=== PATIENT | female | born 1965 | race Caucasian/White ===

== ENCOUNTER 2016-11-17 19:42 | Outpatient (CLI) | payer MEDICAID | END 2016-11-17 19:43 | disposition critical access hospital (66) | LOC: EMS 19:42 | PROVIDERS: ATTEND Surgery | DX: S09.93XA Unspecified injury of face, initial encounter (principal); W18.30XA Fall on same level, unspecified, initial encounter; Y92.89 Other specified places as the place of occurrence of the external cause | CPT/HCPCS: A0425; A0429 ==

== ENCOUNTER 2016-11-17 20:02 | Emergency (ER) | payer MEDICAID ==
[2016-11-17] MEDS ORDERED: MAGNESIUM SULFATE 2 GRAM 50 ML IV STA (20:10)
[2016-11-17] MEDS ORDERED: THIAMINE INJ 100 MG, FOLIC ACID INJ 1 MG in SODIUM CHLORIDE 0.9% 100ML 100 ML IV STA (20:10)
[2016-11-17] MEDS ORDERED: MULTIVITAMIN 10 ML in SODIUM CHLORIDE 0.9% 1,000 ML IV STA (20:10)
[2016-11-17] MEDS ORDERED: SODIUM CHLORIDE FLUSH 0.9% 10 ML SYRINGE IVP ONE (20:25)
[2016-11-17 20:34] LABS: BASOPHILS # (AUTO) 0.1 10^3/uL (0.0-0.1); BASOPHILS % (AUTO) 0.8 %; EOSINOPHILS # (AUTO) 0.2 10^3/uL (0.0-0.7); EOSINOPHILS % (AUTO) 1.9 %; HCT - HEMATOCRIT 37.6 % (37.0-47.0); HGB - HEMOGLOBIN 12.9 g/dL (12.0-16.0); LYMPHOCYTES % (AUTO) 34.6 %; MEAN CORPUSCULAR HEMOGLOBIN 31.2 pg (27.0-31.0); MEAN CORPUSCULAR HGB CONC 34.4 g/dL (32.0-36.0); MEAN CORPUSCULAR VOLUME 90.9 fL (81.0-99.0); MEAN PLATELET VOLUME 6.5 fL (7.9-10.8); MONOCYTES # (AUTO) 0.8 10^3/uL (0.0-1.0); MONOCYTES % (AUTO) 8.6 %; NEUTROPHILS # (AUTO) 4.7 10^3/uL (1.5-6.6); NEUTROPHILS % (AUTO) 54.1 %; RED BLOOD COUNT 4.14 10^6/uL (4.20-5.40); RED CELL DISTRIBUTION WIDTH 14.3 % (12.0-15.0); UNCORRECTED WHITE BLOOD COUNT 8.8 x10^3/uL; WHITE BLOOD COUNT 8.8 x10^3/uL (4.8-10.8)
--- NOTE | 2016-11-17 20:37 | ED Physician Documentation ---
History of Present Illness - Stated complaint Stated Complaint: ETOH/GLF - Chief complaint Chief Complaint: Neuro - Additonal information Additional information: Patient is a 51-year-old female with a history of alcohol dependence, seizure disorder on Dilantin, and chronic musculoskeletal problems. The patient had been drinking substantially today when she fell earlier in the day. He arrived to the scene and found the patient on the ground. Patient is quite inebriated and has some evidence of injury to her right cheek area. Here the patient is alert and oriented although appears and smells very inebriated. She complains of neck and lower back pain both of which are ongoing and not acute. She presented in cervical spine precautions which we will continue until she can be clinically assessed. She also complains of low back pain which again is chronic. The low back pain is located in the lumbar area. She denies that this was injured or worse today. She has a small amount of swelling around the eye I on the right side that looks acute or subacute. Review of systems: For pertinent positive and negatives in the review of systems please see the history of present illness, otherwise all other systems have been reviewed and are negative. Dragon disclaimer: Parts of this medical record were created using voice recognition technology. Because of the inherent limitations of this system, occasional same sounding word substitutions do occur and persist despite proofreading. Please read the document for context. 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) Neuro: Craniotomy HEENT: Cataracts - Present Medications Home Medications: Ambulatory Orders Medication Instructions Recorded Confirmed Atenolol 100 mg PO DAILY 11/09/14 11/23/14 Phenytoin Sodium Extended 500 mg PO DAILY 11/09/14 11/23/14 [Dilantin] Aspirin/Calcium Carbonate/Mag 325 mg PO DAILY 11/22/14 11/22/14 [Aspirin Buffered 325 mg Tab] - Allergies Allergies/Adverse Reactions: Allergies Allergy/AdvReac Type Severity Reaction Status Date / Time acetaminophen [From Tylenol] Allergy Respiratory Verified 08/18/15 19:40 ibuprofen AdvReac Nausea Verified 08/18/15 19:40 morphine AdvReac Nausea Verified 08/18/15 19:40 - Social History Does the pt smoke?: Yes Smoking Status: Current every day smoker Does the pt drink ETOH?: Yes Does the pt have substance abuse?: No - Immunizations Immunizations are current?: No Immunizations: TDAP >10years/unknown PD ED PE NORMAL - Vitals Vital signs reviewed: Yes - General General: Alert and oriented X 3, No acute distress, Other (Mild erythema or ultrahigh without any evidence of severe contusion. Eyes are clinically normal without proptosis, and ophthalmicus. There is no disconjugate gaze. Head is palpated and nontender. [place] moist teeth in poor condition neck bilateral posterior muscular tenderness not truly in the midline). No: Well developed/ nourished - HEENT HEENT: Other - Neck Neck: Supple, no meningeal sign. 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 doctor's office 2-12 intact, No motor deficit, No sensory deficit Results - Vitals Vitals: Vital Signs - 24 hr 11/17/16 20:05 Temperature 36.3 C L Heart Rate 80 Respiratory 20 Rate Blood Pressure 150/85 H O2 Saturation 100 Oxygen O2 Source Room air - Labs Labs: Laboratory Tests 11/17/16 11/17/16 20:28 20:28 WBC 8.8 RBC 4.14 L Hgb 12.9 Hct 37.6 MCV 90.9 MCH 31.2 H MCHC 34.4 RDW 14.3 Plt Count 273 MPV 6.5 L Neut # 4.7 Lymph # 3.0 Harvey # 0.8 Eos # 0.2 Baso # 0.1 Absolute Nucleated RBC 0.00 Nucleated RBCs 0.0 Sodium 129 L Potassium 3.7 Chloride 92 L Carbon Dioxide 26 Anion Gap 11.0 BUN 9 Creatinine 0.5 Estimated GFR (MDRD) 131 Glucose 94 Calcium 9.0 Total Bilirubin 0.5 AST 27 ALT 16 Alkaline Phosphatase 70 Total Protein 7.6 Albumin 4.5 Globulin 3.1 Albumin/Globulin Ratio 1.5 Lipase 23 Phenytoin 11.5 Ethyl Alcohol 256.6 PD MEDICAL DECISION MAKING - ED course Complexity details: reviewed old records, reviewed results, re-evaluated patient , d/w patient ED course: Patient is a 51-year-old female with a history of alcoholism and a seizure disorder. She presents after falling earlier today. She says she struck her head hard and was dizzy afterward. Her friend called the ambulance who brought her in. Initially the patient was mildly inebriated smelled heavily of alcohol that I presumably it was mostly aldehyde's from previous drinking earlier today. From an injury standpoint she was complaining of headache although I did not see any significant injury other than a little johnny-orbital contusion on the right. She is also complaining of neck pain and has a history of the same however given the fall and her alcoholism I did a CT scan of the head and neck. Both show no evidence of any acute fracture. She does have low back pain but she says this is her regular low back pain and is no worse than it normally is. Her alcohol level is elevated and she was given intravenous fluids , vitamins, and magnesium at this point in time he is clinically sober. She has been cleared from an injury standpoint and she will be released. Disposition: To home clinical impression: 1. Acute alcohol intoxication 2. Status post fall with right periorbital contusion, closed head injury, and cervical strain Departure - Departure Disposition: 01 Home, Self Care Clinical Impression: Alcohol abuse, Head injury Condition: Good Instructions: Alcoholism, ED Head Injury Closed
[2016-11-17] MEDS ORDERED: THIAMINE 100 MG/1 ML 2 ML MDV ONE (20:41)
[2016-11-17] MEDS ORDERED: MAGNESIUM SULFATE 2 GRAM 50 ML IV ONE (20:44)
[2016-11-17 20:48] LABS: ALBUMIN/GLOBULIN RATIO 1.5 (1.0-2.2); BILIRUBIN,TOTAL 0.5 mg/dL (0.2-1.0); CREATININE 0.5 mg/dL (0.4-1.0); POTASSIUM 3.7 mmol/L (3.5-5.0); TOTAL PROTEIN 7.6 g/dL (6.7-8.2)
--- NOTE | 2016-11-17 22:28 | CT Preliminary Report ---
Exam: CT Head W/O IMPRESSION: No acute intracranial process. [facility] SITE ID: [id number]
--- NOTE | 2016-11-17 22:31 | CT Report ---
EXAM: CT HEAD EXAM DATE: 11/17/2016 09:58 PM. CLINICAL HISTORY: Fall. COMPARISON: 12/18/2015. TECHNIQUE: Multiaxial CT images were obtained from the foramen magnum to the vertex. IV contrast: Non e. Reformats: Coronal. In accordance with CT protocol optimization, one or more of the following dose reduction techniques w ere utilized for this exam: automated exposure control, adjustment of mA and/or KV based on patient s ize, or use of iterative reconstructive technique. FINDINGS: Parenchyma: No intraparenchymal hemorrhage. No evidence of mass, midline shift, or CT findings of inf arction. Stinson-white differentiation is distinct. Extraaxial Spaces: Normal for age. No subdural or epidural collections identified. Ventricles: Normal in size and position. Sinuses: Imaged paranasal sinuses, orbits, and mastoids show no significant abnormality. Bones: Patient status post prior left frontal parietal craniotomy. Other: None. IMPRESSION: No acute intracranial process. [facility] Referring Provider Line: [phone] SITE ID: [id number]
--- NOTE | 2016-11-17 22:36 | CT Preliminary Report ---
Exam: CT Cervical Spine W/O IMPRESSION: No evidence of cervical spine fracture. [facility] SITE ID: [id number]
--- NOTE | 2016-11-17 22:39 | CT Report ---
EXAM: CT CERVICAL SPINE WITHOUT CONTRAST DATE: 11/17/2016 09:58 PM HISTORY: Fall, neck pain COMPARISONS: CT cervical spine 08/18/2015. TECHNIQUE: Thin-section axial images were acquired of the cervical spine without contrast. Post-proce ssing: Coronal and sagittal reformats. Other: None. In accordance with CT protocol optimization, one or more of the following dose reduction techniques w ere utilized for this exam: automated exposure control, adjustment of mA and/or KV based on patient s ize, or use of iterative reconstructive technique. FINDINGS: Alignment: Normal. No scoliosis or spondylolisthesis. Bones: No fracture or bone lesion. Interspace Levels/Facets: There is no CT evidence of central canal narrowing. There are prominent anterior osteophytes at C5-C6 and C6-C7. There is moderate facet hypertrophy on the right at C2-C3 and C4-C5 and on the left at C3 -C4. There is moderate right C2-C3 neural foraminal narrowing. There is severe left C3-C4 neural for aminal narrowing. There is severe right C4-C5 neural foraminal narrowing. There is mild left C5-C6 ne ural foraminal narrowing. Musculature: Normal. No fatty atrophy. Other: The paravertebral and prevertebral soft tissues are normal. The lung apices are clear. There i s note of periodontal disease related to several visualized teeth. IMPRESSION: No evidence of cervical spine fracture. [facility] Referring Provider Line: [phone] SITE ID: [id number]
[2016-11-17 23:22] VITALS: BP 138/79
== END 2016-11-17 23:23 | disposition home or self-care (01) ==
LOC: EDUNIT# → ED 20:02
DX: F10.129 Alcohol abuse with intoxication, unspecified (principal); S09.90XA Unspecified injury of head, initial encounter; W18.30XA Fall on same level, unspecified, initial encounter; Y90.8 Blood alcohol level of 240 mg/100 ml or more; I10 Essential (primary) hypertension; F17.200 Nicotine dependence, unspecified, uncomplicated; Z79.82 Long term (current) use of aspirin
CPT/HCPCS: 36415; 70450; 72125; 80053; 80185; 80320; 83690; 85025; 96374; 96375; 99284; J3411

== ENCOUNTER 2016-11-21 12:19 | Outpatient (CLI) | payer MEDICAID | END 2016-11-21 12:20 | disposition EMS.NT | LOC: EMS 12:19 | PROVIDERS: ATTEND Surgery | DX: R22.0 Localized swelling, mass and lump, head (principal); S80.12XA Contusion of left lower leg, initial encounter; S80.11XA Contusion of right lower leg, initial encounter; Y04.8XXA Assault by other bodily force, initial encounter ==

== ENCOUNTER 2016-11-23 10:28 | Outpatient (CLI) | payer MEDICAID ==
--- NOTE | 2016-11-23 12:29 | XRAY Report ---
BILATERAL ORBITS: 11/23/2016 CLINICAL INDICATION: Eye injury. COMPARISON: Head CT of 11/17/2016. FINDINGS: AP, lateral, Burgess, bilateral oblique views of the orbits were obtained. The orbital wall s appear intact. Changes of previous left craniotomy are stable. There is no evidence of acute fractu re. No air fluid levels are seen in the paranasal sinuses. IMPRESSION: NO EVIDENCE OF ORBITAL FRACTURE. OLD LEFT CRANIOTOMY CHANGES. JOB #: [id number] EXT JOB #:[id number]
== END 2016-11-23 10:29 | disposition home or self-care (01) ==
LOC: DI.S 10:28
PROVIDERS: ATTEND Nurse Practitioner Family
DX: S05.90XA Unspecified injury of unspecified eye and orbit, initial encounter (principal)
CPT/HCPCS: 70200

== ENCOUNTER 2017-04-27 21:41 | Outpatient (CLI) | payer MEDICAID | END 2017-04-27 21:42 | disposition EMS.NT | LOC: EMS 21:41 | PROVIDERS: ATTEND Surgery | DX: S09.93XA Unspecified injury of face, initial encounter (principal); W19.XXXA Unspecified fall, initial encounter; W22.8XXA Striking against or struck by other objects, initial encounter; Y92.039 Unspecified place in apartment as the place of occurrence of the external cause ==

== ENCOUNTER 2017-12-08 19:07 | Outpatient (CLI) | payer MEDICAID | END 2017-12-08 19:08 | disposition critical access hospital (66) | LOC: EMS 19:07 | PROVIDERS: ATTEND Surgery | DX: M25.571 Pain in right ankle and joints of right foot (principal) | CPT/HCPCS: A0425; A0429; A0999 ==

== ENCOUNTER 2017-12-08 19:27 | Emergency (ER) | payer MEDICAID ==
--- NOTE | 2017-12-08 20:26 | XRAY Report ---
Reason: fall, R ankle pain Procedure Date: 12/08/2017 Accession Number: [id number] / [id number] Procedure: XR - Ankle 3 View RT CPT Code: FULL RESULT: EXAM: RIGHT ANKLE RADIOGRAPHY, 3 VIEWS EXAM DATE: 12/08/2017 08:13 PM. CLINICAL HISTORY: Fall, right ankle pain in a 52-year-old female with history of prior trimalleolar fracture. COMPARISON: X-ray ankle complete min 3 view 12/06/2010. TECHNIQUE: Frontal, lateral and oblique views. FINDINGS: Bones: Intact ORIF for trimalleolar fracture with satisfactory healing of fractures. No loosening or hardware failure. No new osseous abnormality. No acute fractures or bone lesions. Joints: Normal. No effusion. No subluxations. The ankle mortise is normally aligned. Soft Tissues: Mild diffuse soft tissue swelling about the ankle,most prominent anteriorly. No soft tissue gas or foreign body. IMPRESSION: Generalized [id number] soft tissue swelling, more prominent anteriorly, without underlying acute bone or joint abnormality. Satisfactory appearance of prior ORIF for trimalleolar ankle fracture. No loosening or hardware failure. [facility]
--- NOTE | 2017-12-08 20:34 | XRAY Report ---
Reason: fall, R foot pain Procedure Date: 12/08/2017 Accession Number: [id number] / [id number] Procedure: XR - Foot 3 View RT CPT Code: FULL RESULT: EXAM: RIGHT FOOT RADIOGRAPHY, 3 VIEWS. EXAM DATE: 12/08/2017 08:13 PM. CLINICAL HISTORY: 52-year-old female post fall with right foot pain. History of prior trimalleolar ankle fracture. COMPARISON: Right ankle study today and earlier examination of 12/06/2010. TECHNIQUE: Frontal, lateral and oblique views. FINDINGS: Bones: Intact ORIF trimalleolar ankle fracture, discussed in detail on separate right ankle report. No acute fractures or bone lesions. Joints: Normal. No subluxations. Soft Tissues: Mild soft tissue swelling over the anterior ankle. No soft tissue gas or foreign body. IMPRESSION: Anterior soft tissue swelling in the region of the ankle. Intact ORIF trimalleolar ankle fracture. No acute bone or joint abnormality noted. [facility]
--- NOTE | 2017-12-08 20:47 | ED Physician Documentation ---
History of Present Illness - Stated complaint Stated Complaint: GLF - Chief complaint Chief Complaint: Ext Problem - History obtained from History obtained from: Patient, Friend, EMS - History of Present Illness Timing: Today Pain level max: 5 Pain level now: 5 Improved by: rest Worsened by: walking - Additonal information Additional information: Patient had been drinking alcohol tonight when she stood up and inverted her right ankle. She is now having pain in the right ankle. History of trimalleolar fracture in the past with hardware in place. No head, neck or back pain. 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) Neuro: Craniotomy HEENT: Cataracts - Present Medications Home Medications: Ambulatory Orders Medication Instructions Recorded Confirmed Phenytoin Sodium Extended 500 mg PO DAILY 11/09/14 11/23/14 [Dilantin] Aspirin/Calcium Carbonate/Mag 325 mg PO DAILY 11/22/14 11/22/14 [Aspirin Buffered 325 mg Tab] Bisoprolol Fumarate 12/08/17 Lansoprazole 15 mg PO 12/08/17 Loratadine 10 mg PO 12/08/17 Nifedipine [Adalat cc] 60 mg PO 12/08/17 - Allergies Allergies/Adverse Reactions: Allergies Allergy/AdvReac Type Severity Reaction Status Date / Time acetaminophen [From Tylenol] Allergy Respiratory Verified 12/08/17 19:35 ibuprofen AdvReac Nausea Verified 12/08/17 19:35 morphine AdvReac Nausea Verified 12/08/17 19:35 - Social History Does the pt smoke?: Yes Smoking Status: Current every day smoker Does the pt drink ETOH?: Yes Does the pt have substance abuse?: No - Immunizations Immunizations are current?: No Immunizations: TDAP >10years/unknown - POLST Patient has POLST: No PD ED PE NORMAL - Vitals Vital signs reviewed: Yes - General General: Alert and oriented X 3, Well developed/nourished - HEENT HEENT: Moist mucous membranes - Neck Neck: Supple, no meningeal sign, No bony TTP - Cardiac Cardiac: RRR - Respiratory Respiratory: No respiratory distress, Clear bilaterally - Abdomen Abdomen: Soft, Non tender, Non distended - Back Back: No spinal TTP - Derm Derm: Warm and dry - Extremities Extremities: Other (TTP over the R lateral malleolus. NVI. also TTP over the dorsum of the foot. ) - Neuro Neuro: Alert and oriented X 3 Results - Vitals Vitals: Vital Signs - 24 hr 12/08/17 12/08/17 19:29 21:01 Temperature 36.6 C Heart Rate 100 96 Respiratory 14 17 Rate Blood Pressure 146/94 H 128/90 H O2 Saturation 97 100 Oxygen O2 Source Room air - Rads (name of study) R ankle xray Radiology: Prelim report reviewed, EMP read contemporaneously, See rad report ( Anterior soft tissue swelling in the region of the ankle. Intact ORIF trimalleolar ankle fracture. No acute bone or joint abnormality noted. ) R foot xray Radiology: Prelim report reviewed, EMP read contemporaneously, See rad report ( Anterior soft tissue swelling in the region of the ankle. Intact ORIF trimalleolar ankle fracture. No acute bone or joint abnormality noted. ) PD MEDICAL DECISION MAKING - ED course Complexity details: reviewed results, re-evaluated patient, considered differential, d/w patient ED course: Patient with a right ankle sprain. Placed in a gel splint for comfort. She is unable to utilize crutches. Has pain medication at home. I will follow-up with her doctor for further care. No other acute traumatic injuries. Counseled regarding missed fractures and may need repeat xrays if not improving. Patient counseled regarding signs and symptoms for which I believe and urgent re-evaluation would be necessary. Patient with good understanding of and agreement to plan and is comfortable going home at this time This document was made in part using voice recognition software. While efforts are made to proofread this document, sound alike and grammatical errors may occur. - Sepsis Event Vital Signs: Vital Signs - 24 hr 18 12/08/17 19:29 21:01 Temperature 36.6 C Heart Rate 100 96 Respiratory 14 17 Rate Blood Pressure 146/94 H 128/90 H O2 Saturation 97 100 Oxygen O2 Source Room air Departure - Departure Disposition: 01 Home, Self Care Clinical Impression: Right ankle sprain Qualifiers: Encounter type: initial encounter Involved ligament of ankle: unspecified ligament Qualified Code(s): S93.401A - Sprain of unspecified ligament of right ankle, initial encounter Condition: Good Instructions: ED Sprain Ankle Follow-Up: Alexandra Centeno ARNP [Primary Care Provider] - Within 1 week Comments: return if you worsen. Your xrays do not show any acute abnormalities at this time. Discharge Date/Time: 12/08/17 21:05
[2017-12-08 21:01] VITALS: BP 128/90
== END 2017-12-08 21:05 | disposition home or self-care (01) ==
LOC: EDUNIT# → SUPCPDRO 19:27 → ED 19:27
DX: S93.401A Sprain of unspecified ligament of right ankle, initial encounter (principal); X50.1XXA Overexertion from prolonged static or awkward postures, initial encounter; Z87.81 Personal history of (healed) traumatic fracture; I10 Essential (primary) hypertension; E78.00 Pure hypercholesterolemia, unspecified; F17.200 Nicotine dependence, unspecified, uncomplicated
CPT/HCPCS: 99282; 99283

== ENCOUNTER 2018-09-09 08:31 | Emergency (ER) | payer MEDICAID ==
[2018-09-09] MEDS ORDERED: BUFFERED LIDOCAINE 10 ML SYRINGE SUBQ STA (10:23)
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
[2018-09-09] MEDS ORDERED: TETANUS/DIPHTHERIA/PERTUSSIS 0.5 ML SYRINGE IM ONE (10:56)
[2018-09-09 11:09] VITALS: BP 128/88
== END 2018-09-09 11:09 | disposition home or self-care (01) ==
LOC: ED 08:31
DX: S01.511A Laceration without foreign body of lip, initial encounter (principal); W20.8XXA Other cause of strike by thrown, projected or falling object, initial encounter; Y93.01 Activity, walking, marching and hiking; Y92.410 Unspecified street and highway as the place of occurrence of the external cause; Z23 Encounter for immunization; I10 Essential (primary) hypertension; F17.200 Nicotine dependence, unspecified, uncomplicated; Z79.82 Long term (current) use of aspirin
CPT/HCPCS: 12011; 90471; 99282; 99283

== ENCOUNTER 2019-04-26 10:00 | Outpatient (CLI) | payer MEDICAID ==
--- NOTE | 2019-04-26 15:57 | DEXA Report ---
Reason: POSTMENOPAUSAL Procedure Date: 04/26/2019 Accession Number: [id number] / [id number] Procedure: DEX - Dexa Spine and/or Hip CPT Code: Final Report FULL RESULT: EXAM: Dexa Spine and/or Hip DATE: 04/26/2019 10:28 AM CLINICAL HISTORY: POSTMENOPAUSAL. TECHNIQUE: Dual energy x-ray absorptiometry (DXA) was performed on a turntable.fm System. Regions measured are the AP Spine, femoral neck, and if needed forearm. COMPARISON: None. In accordance with the International Society for Clinical Densitometry (ISCD) guidelines, data from previous exams may be reanalyzed using current recommendations and techniques. This is done to allow a more accurate basis for comparison with the current study. FINDINGS: The data for the lumbar spine is as follows: BMD (g/cm/cm) T-SCORE Z-SCORE REGION L1 1.170 0.3 0.8 L2 1.282 0.7 1.2 L3 1.444 2.0 2.5 L4 1.421 1.8 2.3 TOTAL 1.340 1.3 1.8 NOTE: All evaluable vertebrae are used for classification The data for the hip is as follows: BMD (g/cm/cm) T-SCORE Z-SCORE REGION Neck 0.891 -1.1 -0.2 TOTAL 0.847 -1.3 -0.8 NOTE: The femoral neck or total proximal femur, whichever is lowest, is used for classification. IMPRESSION: THE WHO CLASSIFICATION BASED ON THE INTERNATIONAL REFERENCE STANDARD IS OSTEOPENIA. THE FRACTURE RISK IS INCREASED. RECOMMENDATION: Patients with diagnosis of osteoporosis or osteopenia should have regular bone mineral density assessment. For those eligible for Medicare, routine testing is allowed once every 2 years. Testing frequency can be increased for patients who have rapidly progressing disease or for those who are receiving medical therapy to restore bone mass. COMMENT: World Health Organization (WHO) definitions for osteoporosis and osteopenia: NORMAL BMD: T-score at -1.0 or higher, fracture risk is low OSTEOPENIA BMD: T-score between -1.0 and -2.5, fracture risk is increased. OSTEOPOROSIS BMD: T-score at -2.5 or lower, fracture risk is high. National Osteoporosis Foundation recommends: 1. Obtain adequate dietary calcium (at least 1200 mg per day) and vitamin D (400-800 international units per day). 2. Participate, as appropriate, in regular weightbearing and muscle-strengthening exercise. 3. Avoid tobacco use and reduce alcohol and caffeine intake. 4. For more detailed information see the website at www.NOF.org.
== END 2019-04-26 10:01 | disposition home or self-care (01) ==
LOC: DI 10:00
PROVIDERS: ATTEND Registered Nurse
DX: M85.89 Other specified disorders of bone density and structure, multiple sites (principal); Z78.0 Asymptomatic menopausal state
CPT/HCPCS: 77080

== ENCOUNTER 2019-04-26 10:03 | Outpatient (CLI) | payer MEDICAID ==
--- NOTE | 2019-04-26 12:30 | Mammography Report ---
Reason: ROUTINE MAMMO Procedure Date: 04/26/2019 Accession Number: [id number] / [id number] Procedure: SUSANNA - Screening Mammo w/Paul CPT Code: Final Report FULL RESULT: EXAM: Screening Mammo w/Paul DATE: 04/26/2019 11:07 AM CLINICAL HISTORY: The patient is an asymptomatic 53-year-old female for screening mammogram. Nulliparous. Family history (sister) with breast cancer. TECHNIQUE: (B) - Bilateral CC and MLO views were obtained. COMPARISON: None available PARENCHYMAL PATTERN: (A) - The breasts demonstrate scattered fibroglandular densities bilaterally. FINDINGS: RIGHT BREAST: There may be a focal asymmetry in the subareolar position; reference 3-D slice 30 (MLO view). Recommend targeted diagnostic evaluation. The remainder the parenchymal pattern is unremarkable. LEFT BREAST: There may be asymmetry/distortion in the upper outer middle position; reference 3-D slices 32 (MLO view) and 26 (CC view). Recommend targeted diagnostic evaluation. The remainder the parenchymal pattern is unremarkable. IMPRESSION: Incomplete examination. BI-RADS category 0. RECOMMENDATION: (ADDMAM) - Recommend additional mammographic views. Recommend ultrasound if warranted. BI-RADS CATEGORY: (0) - Incomplete Examination - need additional evaluation. STANDARD QUALIFYING STATEMENTS: A negative or benign imaging report should not preclude biopsy if clinically suspicious findings are present. Dense breasts may obscure an underlying neoplasm. This examination was reviewed with the aid of 3D breast imaging (tomosynthesis). BI-RADS 1 -- negative findings (within normal)
== END 2019-04-26 10:04 | disposition home or self-care (01) ==
LOC: DI 10:03
PROVIDERS: ATTEND Registered Nurse
DX: Z12.31 Encounter for screening mammogram for malignant neoplasm of breast (principal); Z80.3 Family history of malignant neoplasm of breast
CPT/HCPCS: 77063; 77067

== ENCOUNTER 2020-04-02 08:28 | Outpatient (CLI) | payer MEDICAID ==
--- NOTE | 2020-04-03 09:19 | Ultrasound Report ---
LIMITED ULTRASOUND OF RIGHT BREAST: 04/02/2020 CLINICAL: Patient returns today to evaluate a focal asymmetry in the right breast. Comparison is made to exams dated: 04/02/2020 mammogram - [facility] and 04/26/2019 mammogram - [facility]. Ultrasound of the right breast 6 o'clock, and retroareolar regions was performed. There is benign duct ectasia in the right breast central to the nipple in the retroareolar region. T his correlates with mammography findings. IMPRESSION: BENIGN There is no sonographic evidence of malignancy. The duct ectasia in the right breast is benign. A 1 year screening mammogram is recommended. This exam was interpreted at Station ID: [id number]. Electronically Signed By: Burton guerrero/tyler:04/02/2020 11:11:05 Ultrasound BI-RADS: 2 Benign BI-RADS CATEGORY: (2) - 2 RECOMMENDATION: (ANNUAL) - Recommend routine annual screening mammography. [id number] 1 year screening LATERALITY: (B)
--- NOTE | 2020-04-03 09:19 | Mammography Report ---
BILATERAL DIGITAL DIAGNOSTIC MAMMOGRAM 3D/2D: 04/02/2020 CLINICAL: Patient returns today to evaluate asymmetries in bilateral breasts. Comparison is made to exams dated: 04/26/2019 mammogram - [facility]. There are sc attered fibroglandular elements in both breasts. The previously seen focal asymmetry in the left breast upper outer quadrant disperses on spot ramírez minh views, compatible with normal fibroglandular breast tissue. There is a 4 mm focal asymmetry with an obscured margin in the right breast central to the nipple in the retroareolar region. This is seen in additional views. No other significant masses, calcifications, or other findings are seen in either breast. IMPRESSION: INCOMPLETE: NEEDS ADDITIONAL IMAGING EVALUATION The 4 mm focal asymmetry in the right breast is indeterminate. An ultrasound is recommended. This exam was interpreted at Station ID: [id number]. NOTE: For mammograms, a report in lay terms will be sent to the patient. Approximately 15% of breast malignancies will not be visualized mammographically. In the management of a palpable breast mass, a negative mammogram must not discourage biopsy of a clinically suspicious lesion. SUMMARY: Targeted ultrasound is recommended for further evaluation and will be scheduled immediately following this exam. Electronically Signed By: Burton guerrero/tyler:04/02/2020 11:09:44 ACR BI-RADS Category 0: Incomplete 3340F PARENCHYMAL PATTERN: (A) - The breast(s) demonstrate(s) scattered fibroglandular densities. BI-RADS CATEGORY: (0) - 0 Ultrasound [id number] Immediate follow-up LATERALITY: (R)
== END 2020-04-02 08:29 | disposition home or self-care (01) ==
LOC: DI 08:28
PROVIDERS: ATTEND Registered Nurse
DX: R92.8 Other abnormal and inconclusive findings on diagnostic imaging of breast (principal)

== ENCOUNTER 2020-06-03 10:54 | Outpatient (CLI) | payer MEDICAID ==
[2020-06-03 11:17] LABS: BASOPHILS # (AUTO) 0.1 10^3/uL (0.0-0.1); BASOPHILS % (AUTO) 1.7 %; EOSINOPHILS # (AUTO) 0.1 10^3/uL (0.0-0.7); EOSINOPHILS % (AUTO) 1.5 %; HCT - HEMATOCRIT 42.7 % (37.0-47.0); HGB - HEMOGLOBIN 13.8 g/dL (12.0-16.0); LYMPHOCYTES # (AUTO) 1.7 10^3/uL (1.5-3.5); LYMPHOCYTES % (AUTO) 28.5 %; MEAN CORPUSCULAR HEMOGLOBIN 29.7 pg (27.0-31.0); MEAN CORPUSCULAR HGB CONC 32.3 g/dL (32.0-36.0); MEAN CORPUSCULAR VOLUME 91.8 fL (81.0-99.0); MEAN PLATELET VOLUME 8.6 fL (7.9-10.8); MONOCYTES # (AUTO) 0.7 10^3/uL (0.0-1.0); MONOCYTES % (AUTO) 11.5 %; NEUTROPHILS # (AUTO) 3.3 10^3/uL (1.5-6.6); NEUTROPHILS % (AUTO) 56.5 %; PLT - PLATELET COUNT 294 10^3/uL (130-450); RED BLOOD COUNT 4.65 10^6/uL (4.20-5.40); RED CELL DISTRIBUTION WIDTH 13.8 % (12.0-15.0); WHITE BLOOD COUNT 5.9 x10^3/uL (4.8-10.8)
[2020-06-03 11:38] LABS: ALBUMIN 4.4 g/dL (3.2-5.5); ALBUMIN/GLOBULIN RATIO 1.2 (1.0-2.2); ALKALINE PHOSPHATASE 87 IU/L (42-121); ALT ALANINE AMINOTRANSFERASE 14 IU/L (10-60); AST ASPARTATE AMINOTRANSFERASE 23 IU/L (10-42); BILIRUBIN,TOTAL 0.5 mg/dL (0.2-1.0); BUN - BLOOD UREA NITROGEN 8 mg/dL (6-20); CALCIUM 9.6 mg/dL (8.5-10.3); CARBON DIOXIDE - CO2 27 mmol/L (21-32); CHLORIDE 94 mmol/L (101-111); CHOLESTEROL 250 mg/dL; CREATININE 0.5 mg/dL (0.4-1.0); GFR - MDRD 130 (>89); GLUCOSE 105 mg/dL (70-100); HDL CHOLESTEROL 128 mg/dL; LDL CHOLESTEROL,CALCULATED 108 mg/dL; LDL/HDL RATIO 0.8 (<4.4); PHENYTOIN (DILANTIN) 4.8 ug/mL; POTASSIUM 4.2 mmol/L (3.5-5.0); SODIUM 135 mmol/L (135-145); TRIGLYCERIDES 71 mg/dL; VLDL CHOLESTEROL 14 mg/dL
[2020-06-03 11:47] LABS: THYROID STIMULATING HORMONE 1.05 uIU/mL (0.34-5.60)
== END 2020-06-03 10:55 | disposition home or self-care (01) ==
LOC: LAB 10:54
PROVIDERS: ATTEND Registered Nurse
DX: I10 Essential (primary) hypertension (principal); G45.9 Transient cerebral ischemic attack, unspecified; G40.909 Epilepsy, unspecified, not intractable, without status epilepticus; Z79.899 Other long term (current) drug therapy
CPT/HCPCS: 36415; 80053; 80061; 80185; 83721; 84443; 85025

== ENCOUNTER 2020-10-28 11:31 | Outpatient (CLI) | payer MEDICAID ==
[2020-10-28 11:59] LABS: BASOPHILS # (AUTO) 0.1 10^3/uL (0.0-0.1); BASOPHILS % (AUTO) 1.6 %; EOSINOPHILS # (AUTO) 0.1 10^3/uL (0.0-0.7); EOSINOPHILS % (AUTO) 1.2 %; HCT - HEMATOCRIT 40.8 % (37.0-47.0); HGB - HEMOGLOBIN 13.9 g/dL (12.0-16.0); LYMPHOCYTES # (AUTO) 1.4 10^3/uL (1.5-3.5); LYMPHOCYTES % (AUTO) 28.6 %; MEAN CORPUSCULAR HEMOGLOBIN 30.5 pg (27.0-31.0); MEAN CORPUSCULAR HGB CONC 34.1 g/dL (32.0-36.0); MEAN CORPUSCULAR VOLUME 89.7 fL (81.0-99.0); MEAN PLATELET VOLUME 8.6 fL (7.9-10.8); MONOCYTES # (AUTO) 0.6 10^3/uL (0.0-1.0); MONOCYTES % (AUTO) 12.7 %; NEUTROPHILS # (AUTO) 2.8 10^3/uL (1.5-6.6); NEUTROPHILS % (AUTO) 55.3 %; PLT - PLATELET COUNT 293 10^3/uL (130-450); RED BLOOD COUNT 4.55 10^6/uL (4.20-5.40); RED CELL DISTRIBUTION WIDTH 14.1 % (12.0-15.0)
== END 2020-10-28 11:32 | disposition home or self-care (01) ==
LOC: LAB 11:31
PROVIDERS: ATTEND Obstetrics & Gynecology
DX: Z01.812 Encounter for preprocedural laboratory examination (principal); N87.1 Moderate cervical dysplasia
CPT/HCPCS: 36415; 85025; 86850; 86900; 86901

== ENCOUNTER 2020-10-29 11:04 | Day surgery (SDC) | payer MEDICAID ==
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
[~2020-10-29 11:04] MED LIST: LIDOCAINE MPF 2%-EPI 1:200000 20 ML VIAL ONE
[2020-10-29] MEDS ORDERED: LACTATED RINGERS 1,000 ML IV ONE ×2 (11:21→13:28)
[2020-10-29] MEDS ORDERED: HYDROmorphone 0.5 MG/0.5 ML SYRINGE IVP PRN (11:30)
[2020-10-29] MEDS ORDERED: ATROPINE ABBOJECT 1 MG/10 ML SYRINGE IVP PRN (11:30)
[2020-10-29] MEDS ORDERED: ONDANSETRON 4 MG/2 ML VIAL IVP PRN (11:30)
[2020-10-29] MEDS ORDERED: fentaNYL 100 MCG/2 ML VIAL IVP PRN (11:30)
[2020-10-29] MEDS ORDERED: NALOXONE 0.4 MG/ML VIAL IVP PRN (11:30)
--- NOTE | 2020-10-29 11:58 | ANESTHESIA ---
Pre-Anesthesia VS, & Labs - Diagnosis MELL 2 - Procedure Cold knife cone biopsy Vital Signs: Temp Pulse Resp BP Pulse Ox 37.8 C 74 14 167/91 H 100 10/29/20 11:20 10/29/20 11:20 10/29/20 11:20 10/29/20 11:20 10/29/20 11:20 Height: 5 ft 9 in Weight (kg): 64 kg Body Mass Index: 20.8 BMI Classification: Healthy weight - NPO >8 hours - Is Patient ?: No - Lab Results Current Lab Results: Laboratory Tests 10/29/20 11:31: POC Whole Bld Glucose 90 Home Medications and Allergies Home Medications: Ambulatory Orders Albuterol Sulfate [Proair Hfa Inhaler] 1 - 2 puffs INH Q4H PRN 10/25/20 Aspirin [Aspirin EC] 325 mg PO DAILY 10/25/20 Fluticasone [Flonase] 1 sprays KERRIE BID PRN 10/25/20 No122/Iron/Folic Acid [ Multi Tablet] 1 each PO DAILY 10/25/20 Active Medications Atropine Sulfate (Atropine Abboject 1 Mg/10 Ml Syringe) 0.5 mg IVP Q5M PRN PRN Reason: Bradycardia Stop: 10/30/20 11:30 Fentanyl (Fentanyl 100 Mcg/2 Ml Vial) 25 - 50 mcg IVP Q5M PRN PRN Reason: BREAKTHROUGH PAIN (2nd Choice) Stop: 10/30/20 11:30 Hydromorphone HCl (Hydromorphone 0.5 Mg/0.5 Ml Syringe) 0.2 - 0.6 mg IVP Q5M PRN PRN Reason: PAIN (First Choice) Stop: 10/30/20 11:30 Lactated Ringer's (Lr) 1,000 mls @ 100 mls/hr IV .Q10H RUTHIE Stop: 10/29/20 21:59 Naloxone HCl (Naloxone 0.4 Mg/Ml Vial) 0.1 mg IVP Q2M PRN PRN Reason: RESP RATE <8 Stop: 10/30/20 11:30 Ondansetron HCl (Ondansetron 4 Mg/2 Ml Vial) 4 mg IVP ONCE PRN PRN Reason: N/V (First Choice) Stop: 10/30/20 11:30 Phenytoin Sodium Extended [Dilantin] 500 mg PO DAILY 11/09/14 Loratadine 10 mg PO DAILY 12/08/17 NIFEdipine [Adalat cc] 60 mg PO DAILY 12/08/17 bisoproloL fumarate [Bisoprolol Fumarate] 10 mg PO DAILY 12/08/17 Albuterol Sulfate [Proair Hfa Inhaler] 1 - 2 puffs INH Q4H PRN 10/25/20 Aspirin [Aspirin EC] 325 mg PO DAILY 10/25/20 Fluticasone [Flonase] 1 sprays KERRIE BID PRN 10/25/20 No122/Iron/Folic Acid [ Multi Tablet] 1 each PO DAILY 10/25/20 Allergies/Adverse Reactions: Allergies Allergy/AdvReac Type Severity Reaction Status Date / Time acetaminophen [From Tylenol] AdvReac Nausea Verified 10/25/20 11:04 ibuprofen AdvReac Nausea Verified 09/09/18 08:45 morphine AdvReac Nausea Verified 09/09/18 08:45 Anes History & Medical History - Anesthetic History Anesthesia Complications: reports: No previous complications - Medical History Cardiovascular: reports: Hypertension, Other (mvp) Pulmonary: reports: None Gastrointestinal: reports: None Urinary: reports: None Neuro: reports: Seizure disorder (well controlled, on dilantin) Musculoskeletal: reports: Osteoarthritis, Chronic back pain Endocrine/Autoimmune: reports: None Blood Disorders: reports: None Skin: reports: Psoriasis Smoking Status: Current every day smoker (1/2 pack per day x35 years) Psychosocial: reports: No issues indicated - Surgical History Eyes Ears Nose Throat (EENT): reports: Cataracts, Other Cardiothoracic: reports: Other (hx rib fracture with pneumo) Gynecologic: reports: Dilation and currettage, LEEP (Cervical surgery) Neurologic: reports: Craniotomy Orthopedic: reports: Other (ORIF ankle, leg hematoma) Exam General: Alert, Oriented x3, Cooperative Dental: Poor dentition Mouth Openin Fingerbreadth Neck Mobility: Normal Mallampati classification: I Thyromental Distance: 4-6 cm Respiratory: Lungs clear, Normal breath sounds, No respiratory distress, No accessory muscle use Cardiovascular: Regular rate, Normal S1, Normal S2, No murmurs Mental/Cognitive Status: Alert/Oriented X3, Normal for patient Plan Anesthesia Type: General Consent for Procedure(s) Verified and Reviewed: Yes Code Status: Attempt Resuscitation ASA classification: 2-Mild systemic disease Is this case an emergency?: No
[2020-10-29] MEDS ORDERED: LACTATED RINGERS 1,000 ML IV SCH (12:00)
[2020-10-29] MEDS ORDERED: PROPOFOL 200 MG/20 ML VIAL IVP ONE (12:03)
[2020-10-29] MEDS ORDERED: LIDOCAINE-MPF 2% 5 ML VIAL ONE (12:03)
[2020-10-29] MEDS ORDERED: fentaNYL 100 MCG/2 ML VIAL ONE (12:03)
[2020-10-29] MEDS ORDERED: MIDAZOLAM 2 MG/2 ML VIAL ONE (12:03)
[2020-10-29] MEDS ORDERED: SEVOFLURANE 250 ML LIQUID INH ONE (12:08)
[2020-10-29] MEDS ORDERED: TRANEXAMIC ACID 1,000 MG/10 ML VIAL ONE (12:40)
[2020-10-29] MEDS ORDERED: LIDOCAINE 2%-EPI 1:100000 20 ML MDV SUBQ ONE (12:53)
[2020-10-29] MEDS ORDERED: ONDANSETRON 4 MG/2 ML VIAL ONE (13:02)
[2020-10-29] MEDS ORDERED: DEXAMETHASONE 4 MG/ML VIAL ONE (13:02)
--- NOTE | 2020-10-29 13:57 | OPERATIVE REPORT ---
Operative Report - General Planned Procedure: Cold Knife Cone Biopsy Pre-Op Diagnosis: ASCUS-H pap smear, ECC with advanced cervical dysplasia, minimum MELL-2 Procedure Performed: Cold knife cone biopsy Post Op Diagnosis: Same - Procedure Note Primary Surgeon: Tamera Hernadez MD Anesthesia Provider: Jody Aguilar CRNA Anesthesia Technique: General ET tube Pathology: 1) Anterior cervical cone biopsy 2) Posterior cervical cone biopsy 3) Endocervical curettage IV Fluids (mL): 1,100 Estimated Blood Loss (mL): 5 Urine Output (mL): 50 Indications: Patient is a 54-year-old G3, P0 that is here fort for a cold knife cone procedure She was initially seen by me on 06/25/20 and had her pap collected. It returned as ASCUS-H. She presents for colposcopy on 09/15/20. She underwent an ECC that returned with high grade dysplasia; likely MELL-2. She reports that she has had LEEP in the past. Colposcopy was technically difficult due to the small size of her cervix. As such, CKC is a safer option for conization with lessened potential for complications given small surface area of the cervix. No change in health hx since time of prior exam Findings: Small, atrophic cervix with well healed LEEP bed. Complications: None - Other Other Information/Narrative: Written informed consents was again confirmed. The patient was taken to the OR where general anesthesia was found to be adequate. She was positioned in dorsal lithotomy position with legs resting in yellowfin stirrups. She was prepped and draped in the usual sterile fashion. No antibiotics were indicated. Patient received tranexamic acid prior to start of the procedure. A sterile bivalve speculum was placed in the patients vagina and the cervix was visualized. A single toothed tenaculum was placed at the anterior cervical lip. A paracervical block was placed using a total of 20 cc of 2% lidocaine mixed with 0.25% bupivicaine with epinephrine injected at 4:00 and 8:00. The cervix was then painted with Lugol solution with the findings noted above. Stay sutures were placed at 4:00 and 8:00 at the cervical-vaginal junction with a [id number] suture using 0-PDS, at the level of the cervical vessels to aid with hemostasis and to grasp the cervix during the procedure. We then used a #11 blade and we cut in a cone-like fashion around the cervix, obtaining the cold knife cone biopsy in 2 specimens, anterior and posterior. The endocervical curettings were obtained and sent as a third specimen. Cautery was used to achieve hemostasis of the excisional bed. Good hemostasis was noted. Surgicel was then placed in the cone bed and the stay sutures were tied across the case of the cone bed to hold the Surgicel in place. Excess suture was tr immed. Good hemostasis was noted. All instruments were then removed from the vagina. Sponge and needle counts correct x2 Patient was awakened from anesthesia and taken to the recovery room in stable condition. Procedure was well tolerated and without complication.
--- NOTE | 2020-10-29 14:20 | ANESTHESIA POST OP EVALUATION ---
Anesthesia Post Eval - Post Anesthesia Eval Vitals: Last Vital Signs Temp 36.6 C 10/29/20 14:00 Pulse 74 10/29/20 14:00 Resp 14 10/29/20 14:00 BP 125/65 10/29/20 14:00 Pulse Ox 97 10/29/20 14:00 CV Function Including HR & BP: Stable Pain Control: Satisfactory Nausea & Vomiting: Negative Mental Status: Baseline Respiratory Status: Airway Patent Hydration Status: Satisfactory Anesthesia Complications: None
[2020-10-29 14:39] VITALS: BP 151/70
== END 2020-10-29 11:05 | disposition home or self-care (01) ==
LOC: SDS 11:04
PROVIDERS: ATTEND Obstetrics & Gynecology
PROC: 0UBC7ZX Excision of Cervix, Via Natural or Artificial Opening, Diagnostic (ICD-10-PCS; principal; 2020-10-29 12:15)
DX: N87.1 Moderate cervical dysplasia (principal); I10 Essential (primary) hypertension; G40.909 Epilepsy, unspecified, not intractable, without status epilepticus; F17.210 Nicotine dependence, cigarettes, uncomplicated
CPT/HCPCS: 57520; J3490; J7120

== ENCOUNTER 2021-01-06 13:04 | Outpatient (CLI) | payer MEDICAID | END 2021-01-06 13:05 | disposition home or self-care (01) | LOC: LAB 13:04 | PROVIDERS: ATTEND Registered Nurse | DX: G40.909 Epilepsy, unspecified, not intractable, without status epilepticus (principal) | CPT/HCPCS: 36415; 80185; 81599 ==

== ENCOUNTER 2021-06-30 10:39 | Outpatient (CLI) | payer MEDICAID ==
--- NOTE | 2021-07-01 08:32 | Mammography Report ---
BILATERAL DIGITAL SCREENING MAMMOGRAM 3D/2D: 06/30/2021 CLINICAL: Routine screening. Family history of breast cancer. Comparison is made to exams dated: 04/02/2020 ultrasound, 04/02/2020 mammogram, and 04/26/[address] [facility]. There are scattered fibroglandular elements in both breasts. No significant masses, calcifications, or other findings are seen in either breast. There has been no significant interval change. IMPRESSION: NEGATIVE There is no mammographic evidence of malignancy. A 1 year screening mammogram is recommended. This exam was interpreted at Station ID: [id number]. NOTE: For mammograms, a report in lay terms will be sent to the patient. Approximately 15% of breast malignancies will not be visualized mammographically. In the management of a palpable breast mass, a negative mammogram must not discourage biopsy of a clinically suspicious lesion. Electronically Signed By: Mehrdad Shah M.D., jr/joserad:06/30/2021 14:55:24 ACR BI-RADS Category 1: Negative 3341F PARENCHYMAL PATTERN: (A) - The breast(s) demonstrate(s) scattered fibroglandular densities. BI-RADS CATEGORY: (1) - 1 RECOMMENDATION: (ANNUAL) - Recommend routine annual screening mammography. [id number] 1 year screening LATERALITY: (B)
== END 2021-06-30 10:40 | disposition home or self-care (01) ==
LOC: DI.S 10:39
DX: Z12.31 Encounter for screening mammogram for malignant neoplasm of breast (principal); Z80.3 Family history of malignant neoplasm of breast

== ENCOUNTER 2021-08-26 08:49 | Outpatient (CLI) | payer MEDICAID ==
[2021-08-26 11:49] LABS: BASOPHILS # (AUTO) 0.1 10^3/uL (0.0-0.1); BASOPHILS % (AUTO) 1.4 %; EOSINOPHILS # (AUTO) 0.1 10^3/uL (0.0-0.7); EOSINOPHILS % (AUTO) 2.3 %; HCT - HEMATOCRIT 41.1 % (37.0-47.0); HGB - HEMOGLOBIN 13.8 g/dL (12.0-16.0); LYMPHOCYTES # (AUTO) 1.9 10^3/uL (1.5-3.5); LYMPHOCYTES % (AUTO) 33.3 %; MEAN CORPUSCULAR HEMOGLOBIN 29.8 pg (27.0-31.0); MEAN CORPUSCULAR HGB CONC 33.6 g/dL (32.0-36.0); MEAN CORPUSCULAR VOLUME 88.8 fL (81.0-99.0); MEAN PLATELET VOLUME 9.8 fL (7.9-10.8); MONOCYTES # (AUTO) 0.7 10^3/uL (0.0-1.0); MONOCYTES % (AUTO) 12.3 %; NEUTROPHILS # (AUTO) 2.8 10^3/uL (1.5-6.6); NEUTROPHILS % (AUTO) 50.5 %; PLT - PLATELET COUNT 271 10^3/uL (130-450); RED BLOOD COUNT 4.63 10^6/uL (4.20-5.40); RED CELL DISTRIBUTION WIDTH 14.5 % (12.0-15.0); WHITE BLOOD COUNT 5.6 x10^3/uL (4.8-10.8)
[2021-08-26 12:30] LABS: THYROID STIMULATING HORMONE 1.33 uIU/mL (0.34-5.60)
[2021-08-26 13:01] LABS: ALBUMIN 4.3 g/dL (3.2-5.5); ALBUMIN/GLOBULIN RATIO 1.3 (1.0-2.2); ALKALINE PHOSPHATASE 93 IU/L (42-121); ALT ALANINE AMINOTRANSFERASE 21 IU/L (10-60); AST ASPARTATE AMINOTRANSFERASE 38 IU/L (10-42); BILIRUBIN,TOTAL 0.8 mg/dL (0.2-1.0); BUN - BLOOD UREA NITROGEN 7 mg/dL (6-20); CALCIUM 9.1 mg/dL (8.5-10.3); CARBON DIOXIDE - CO2 28 mmol/L (21-32); CHLORIDE 96 mmol/L (101-111); CHOL/HDL RATIO 1.8 (<4.4); CHOLESTEROL 220 mg/dL; CREATININE 0.6 mg/dL (0.4-1.0); GFR - MDRD 105 (>89); GLUCOSE 103 mg/dL (70-100); HDL CHOLESTEROL 124 mg/dL; LDL CHOLESTEROL,CALCULATED 88 mg/dL; LDL/HDL RATIO 0.7 (<4.4); POTASSIUM 4.1 mmol/L (3.5-5.0); SODIUM 133 mmol/L (135-145); TOTAL PROTEIN 7.7 g/dL (6.7-8.2); TRIGLYCERIDES 41 mg/dL; VLDL CHOLESTEROL 8 mg/dL
== END 2021-08-26 08:50 | disposition home or self-care (01) ==
LOC: LAB.N 08:49
PROVIDERS: ATTEND Registered Nurse
DX: I10 Essential (primary) hypertension (principal); Z13.29 Encounter for screening for other suspected endocrine disorder; Z79.899 Other long term (current) drug therapy
CPT/HCPCS: 36415; 80053; 80061; 83721; 84443; 85025

== ENCOUNTER 2021-08-28 08:00 | Outpatient (CLI) | payer MEDICAID ==
--- NOTE | 2021-08-28 15:41 | XRAY Report ---
PROCEDURE: Ankle 3 View BILAT INDICATIONS: BILATERAL ANKLE PAIN TECHNIQUE: 3 views of the ankle were acquired. COMPARISON: X-ray right ankle 958 FINDINGS: Bones: No acute fractures or dislocations. Ankle mortise is normally aligned. No suspicious bony l esions. Bilateral lateral and medial malleoli or ORIF is present. Hardware is intact. No evidence of hardware fracture or periprosthetic lucency to suggest loosening. Soft tissues: No tibiotalar joint effusion. Achilles tendon appears normal. IMPRESSION: Bilateral ORIF. No visualized acute fracture or dislocation. However, occult injury osito ot be excluded. Recommend short interval imaging follow-up in 7-10 days as clinically indicated for a dditional evaluation. Reviewed by: Louise Franco MD on 08/28/2021 3:40 PM PDT Approved by: Louise Franco MD on 08/28/2021 3:40 PM PDT Station ID: [id number]
== END 2021-08-28 23:59 | disposition home or self-care (01) ==
LOC: DI.S 08:00
PROVIDERS: ATTEND Registered Nurse
DX: M25.571 Pain in right ankle and joints of right foot (principal); M25.572 Pain in left ankle and joints of left foot

== ENCOUNTER 2021-09-26 08:00 | Outpatient (CLI) | payer MEDICAID ==
--- NOTE | 2021-09-26 12:03 | XRAY Report ---
PROCEDURE: Ankle 3 View BILAT INDICATIONS: BILAT ANKLE PAIN TECHNIQUE: 3 views of the right ankle and left ankle were acquired. COMPARISON: 08/28/2021. FINDINGS: Bones: Postsurgical changes compatible with ORIF of bilateral medial malleoli are fractures. Orthope dic hardware is stable in position. Orthopedic hardware remains intact. No lucencies identified at th e bone-hardware interface. No acute fractures or dislocations. Ankle mortise is normally aligned. N o suspicious bony lesions. Soft tissues: No tibiotalar joint effusion. Achilles tendon appears normal. IMPRESSION: Stable postsurgical changes. No acute fracture. No acute osseous lesion. If symptoms and /or clinical concern for pathology persists, further assessment with advanced imaging (CT, MR, bone s can) should be considered. Reviewed by: Ina Groves MD, PhD on 09/26/2021 12:01 PM PDT Approved by: Ina Groves MD, PhD on 09/26/2021 12:01 PM PDT Station ID: [id number]
== END 2021-09-26 23:59 | disposition home or self-care (01) ==
LOC: DI.WOS 08:00
PROVIDERS: ATTEND Physician Assistant
DX: M25.571 Pain in right ankle and joints of right foot (principal); M25.572 Pain in left ankle and joints of left foot

== ENCOUNTER 2022-09-17 10:15 | Outpatient (CLI) | payer MEDICAID ==
[2022-09-17 11:44] LABS: BASOPHILS # (AUTO) 0.1 10^3/uL (0.0-0.1); BASOPHILS % (AUTO) 1.6 %; EOSINOPHILS # (AUTO) 0.1 10^3/uL (0.0-0.7); EOSINOPHILS % (AUTO) 2.2 %; HCT - HEMATOCRIT 39.4 % (37.0-47.0); HGB - HEMOGLOBIN 13.7 g/dL (12.0-16.0); LYMPHOCYTES # (AUTO) 1.8 10^3/uL (1.5-3.5); LYMPHOCYTES % (AUTO) 35.5 %; MEAN CORPUSCULAR HEMOGLOBIN 29.9 pg (27.0-31.0); MEAN CORPUSCULAR HGB CONC 34.8 g/dL (32.0-36.0); MEAN PLATELET VOLUME 9.1 fL (7.9-10.8); MONOCYTES # (AUTO) 0.7 10^3/uL (0.0-1.0); MONOCYTES % (AUTO) 13.2 %; NEUTROPHILS # (AUTO) 2.4 10^3/uL (1.5-6.6); NEUTROPHILS % (AUTO) 47.3 %; PLT - PLATELET COUNT 303 10^3/uL (130-450); RED BLOOD COUNT 4.58 10^6/uL (4.20-5.40); WHITE BLOOD COUNT 5.1 x10^3/uL (4.8-10.8)
[2022-09-17 11:58] LABS: ALBUMIN 4.2 g/dL (3.2-5.5); ALBUMIN/GLOBULIN RATIO 1.1 (1.0-2.2); ALKALINE PHOSPHATASE 113 IU/L (42-121); ALT ALANINE AMINOTRANSFERASE 18 IU/L (10-60); AST ASPARTATE AMINOTRANSFERASE 30 IU/L (10-42); BILIRUBIN,TOTAL 0.5 mg/dL (0.2-1.0); BUN - BLOOD UREA NITROGEN 6 mg/dL (6-20); CALCIUM 9.1 mg/dL (8.5-10.3); CARBON DIOXIDE - CO2 30 mmol/L (21-32); CHLORIDE 88 mmol/L (101-111); CHOL/HDL RATIO 1.9 (<4.4); CHOLESTEROL 224 mg/dL; CREATININE 0.4 mg/dL (0.4-1.0); GFR - MDRD 166 (>89); GLUCOSE 100 mg/dL (70-100); HDL CHOLESTEROL 120 mg/dL; LDL CHOLESTEROL,CALCULATED 94 mg/dL; LDL/HDL RATIO 0.8 (<4.4); PHENYTOIN (DILANTIN) 9.9 ug/mL; POTASSIUM 3.8 mmol/L (3.5-5.0); SODIUM 129 mmol/L (135-145); TOTAL PROTEIN 7.9 g/dL (6.7-8.2); TRIGLYCERIDES 51 mg/dL; VLDL CHOLESTEROL 10 mg/dL
[2022-09-17 12:12] LABS: THYROID STIMULATING HORMONE 0.71 uIU/mL (0.34-5.60)
== END 2022-09-17 10:16 | disposition home or self-care (01) ==
LOC: LAB.N 10:15
PROVIDERS: ATTEND Registered Nurse
DX: Z79.899 Other long term (current) drug therapy (principal); Z13.220 Encounter for screening for lipoid disorders; Z13.29 Encounter for screening for other suspected endocrine disorder
CPT/HCPCS: 36415; 80053; 80061; 80185; 83721; 84443; 85025

== ENCOUNTER 2023-07-01 09:44 | Outpatient (CLI) | payer MEDICAID ==
[2023-07-01 11:52] LABS: BASOPHILS # (AUTO) 0.1 10^3/uL (0.0-0.1); BASOPHILS % (AUTO) 1.2 %; EOSINOPHILS # (AUTO) 0.1 10^3/uL (0.0-0.7); EOSINOPHILS % (AUTO) 2.3 %; HCT - HEMATOCRIT 41.6 % (37.0-47.0); HGB - HEMOGLOBIN 13.7 g/dL (12.0-16.0); LYMPHOCYTES # (AUTO) 1.9 10^3/uL (1.5-3.5); LYMPHOCYTES % (AUTO) 33.4 %; MEAN CORPUSCULAR HEMOGLOBIN 29.7 pg (27.0-31.0); MEAN CORPUSCULAR HGB CONC 32.9 g/dL (32.0-36.0); MEAN CORPUSCULAR VOLUME 90.2 fL (81.0-99.0); MEAN PLATELET VOLUME 8.9 fL (7.9-10.8); MONOCYTES # (AUTO) 0.7 10^3/uL (0.0-1.0); MONOCYTES % (AUTO) 11.3 %; NEUTROPHILS % (AUTO) 51.5 %; PLT - PLATELET COUNT 378 10^3/uL (130-450); RED BLOOD COUNT 4.61 10^6/uL (4.20-5.40); RED CELL DISTRIBUTION WIDTH 14.2 % (12.0-15.0); WHITE BLOOD COUNT 5.8 x10^3/uL (4.8-10.8)
[2023-07-01 12:11] LABS: ALBUMIN 4.5 g/dL (3.2-5.5); ALBUMIN/GLOBULIN RATIO 1.4 (1.0-2.2); ALKALINE PHOSPHATASE 103 IU/L (42-121); ALT ALANINE AMINOTRANSFERASE 12 IU/L (10-60); AST ASPARTATE AMINOTRANSFERASE 21 IU/L (10-42); BILIRUBIN,TOTAL 0.5 mg/dL (0.2-1.0); BUN - BLOOD UREA NITROGEN 8 mg/dL (6-20); CALCIUM 10.2 mg/dL (8.5-10.3); CARBON DIOXIDE - CO2 31 mmol/L (21-32); CHLORIDE 91 mmol/L (101-111); CHOLESTEROL 234 mg/dL; CREATININE 0.5 mg/dL (0.6-1.3); GFR - MDRD 128 (>89); GLUCOSE 105 mg/dL (74-104); HDL CHOLESTEROL 117 mg/dL; LDL CHOLESTEROL,CALCULATED 104 mg/dL; LDL/HDL RATIO 0.9 (<4.4); POTASSIUM 4.1 mmol/L (3.5-4.5); SODIUM 129 mmol/L (135-145); TOTAL PROTEIN 7.8 g/dL (6.4-8.9); TRIGLYCERIDES 64 mg/dL (48-352); VLDL CHOLESTEROL 13 mg/dL
[2023-07-01 12:21] LABS: THYROID STIMULATING HORMONE 1.15 uIU/mL (0.34-5.60)
== END 2023-07-01 09:45 | disposition home or self-care (01) ==
LOC: LAB.N 09:44
PROVIDERS: ATTEND Registered Nurse
DX: Z13.228 Encounter for screening for other metabolic disorders (principal); Z13.220 Encounter for screening for lipoid disorders; Z13.29 Encounter for screening for other suspected endocrine disorder; Z13.0 Encounter for screening for diseases of the blood and blood-forming organs and certain disorders involving the immune mechanism
CPT/HCPCS: 36415; 80053; 80061; 83721; 84443; 85025

== ENCOUNTER 2023-07-01 09:50 | Outpatient (CLI) | payer MEDICAID ==
--- NOTE | 2023-07-01 13:13 | XRAY Report ---
PROCEDURE: Lumbar Spine 2-3V INDICATIONS: LUMBAR SPINAL STENOSIS TECHNIQUE: 2 views of the lumbar spine were acquired. COMPARISON: Lumbar radiographs 07/18/2013. FINDINGS: Bones: 5 [id number] vertebrae are present. There is mild levoconvex curvature of the lumbar spi ne. Trace anterolisthesis of L4 and L5. Multilevel disc height loss, endplate sclerosis and anterior osteophytosis, worse at L5-S1. Multilevel facet arthropathy. No vertebral body compression fractures . No suspicious bony lesions. Soft tissues: Overlying bowel gas pattern is normal. No suspicious soft tissue calcifications. IMPRESSION: 8 osseous abnormality. Multilevel degenerative disc disease and facet arthropathy, worse at L5-S1. Tr jess anterolisthesis of L4 and L5. Reviewed by: Paula Aguilar MD, PhD on 07/01/2023 1:12 PM PDT Approved by: Paula Aguilar MD, PhD on 07/01/2023 1:12 PM PDT Station ID: [id number]
== END 2023-07-01 09:51 | disposition home or self-care (01) ==
LOC: DI.N 09:50
PROVIDERS: ATTEND Registered Nurse
DX: M47.816 Spondylosis without myelopathy or radiculopathy, lumbar region (principal); M47.817 Spondylosis without myelopathy or radiculopathy, lumbosacral region; M51.36 Other intervertebral disc degeneration, lumbar region; M51.37 Other intervertebral disc degeneration, lumbosacral region; M43.16 Spondylolisthesis, lumbar region

== ENCOUNTER 2023-10-22 08:24 | Day surgery (SDC) | payer MEDICAID ==
[2023-10-22] MEDS ORDERED: PROPOFOL 500 MG/50 ML 500 MG/50 ML VIAL ONE (09:04)
[2023-10-22] MEDS ORDERED: LIDOCAINE-MPF 2% 5 ML VIAL ONE (09:04)
--- NOTE | 2023-10-22 09:13 | ANESTHESIA ---
Pre-Anesthesia VS, & Labs - Diagnosis SCREENING - Procedure COLONOSCOPY Vital Signs: Temp Pulse Resp BP Pulse Ox O2 Flow Rate 36.3 C L 82 17 128/72 98 10/22/23 08:53 10/22/23 08:53 10/22/23 08:53 10/22/23 08:53 10/22/23 08:53 Height: 5 ft 9 in Weight (kg): 65.2 kg Body Mass Index: 21.2 BMI Classification: Normal - NPO Other (BOWEL PREP COMPLETED) - Is Patient ?: No Home Medications and Allergies Phenytoin Sodium Extended [Dilantin] 500 mg PO DAILY 11/09/14 Loratadine 10 mg PO DAILY PRN 12/08/17 NIFEdipine [Adalat cc] 60 mg PO DAILY 12/08/17 bisoproloL fumarate [Bisoprolol Fumarate] 10 mg PO DAILY 12/08/17 Albuterol Sulfate [Proair Hfa Inhaler] 1 - 2 puffs INH Q4H PRN 10/25/20 Aspirin [Aspirin EC] 975 mg PO TID 10/25/20 Fluticasone [Flonase] 1 sprays EKRRIE BID PRN 10/25/20 No122/Iron/Folic Acid [ Multi Tablet] 1 each PO DAILY 10/25/20 Allergies/Adverse Reactions: Allergies Allergy/AdvReac Type Severity Reaction Status Date / Time acetaminophen [From Tylenol] AdvReac Nausea Verified 10/25/20 11:04 ibuprofen AdvReac Nausea Verified 09/09/18 08:45 morphine AdvReac Nausea Verified 09/09/18 08:45 Anes History & Medical History - Anesthetic History Anesthesia Complications: reports: No previous complications Family history of Anesthesia Complications: Denies Family history of Malignant Hyperthermia: Denies - Medical History Cardiovascular: reports: Hypertension, Other (PT STATES HX OF MITRAL VALVE PROLAPSE/REGURG) Pulmonary: reports: None Gastrointestinal: reports: GERD Urinary: reports: None Neuro: reports: TIA (PT STATES HX OF TIA X2 DT HIGH BLOOD PRESSURE), Seizure disorder (well controlled, on dilantin) Musculoskeletal: reports: Osteoarthritis, Chronic back pain Endocrine/Autoimmune: reports: None Blood Disorders: reports: None Skin: reports: Psoriasis Smoking Status: Current every day smoker (1/2 pack per day x35 years) Psychosocial: reports: No issues indicated History of Cancer?: Yes (CERVICAL CANCER HX; RESOLVED) - Surgical History Eyes Ears Nose Throat (EENT): reports: Cataracts, Other Cardiothoracic: reports: Other Gynecologic: reports: Dilation and currettage, LEEP (Cervical surgery) Neurologic: reports: Craniotomy Orthopedic: reports: Other Results - EKG Results EKG Comparison: Reviewed EKG, Normal EKG Exam General: Alert, Oriented x3, Cooperative, No acute distress Dental: Loose/Frag, Poor dentition Mouth Openin Fingerbreadth Neck Mobility: Normal Mallampati classification: I Thyromental Distance: 4-6 cm Mental/Cognitive Status: Alert/Oriented X3, Normal for patient Cognitive Status: Within normal limits Plan Anesthesia Type: General Consent for Procedure(s) Verified and Reviewed: Yes Code Status: Attempt Resuscitation ASA classification: 3-Severe systemic disease Is this case an emergency?: No
[2023-10-22] MEDS: LACTATED RINGERS 1,000 ML IV ONE ×2 (09:15→10:10)
[2023-10-22 10:23] VITALS: O2SAT 100
[2023-10-22 10:34] VITALS: BP 164/76
--- NOTE | 2023-10-22 11:05 | ANESTHESIA POST OP EVALUATION ---
Anesthesia Post Eval - Post Anesthesia Eval Vitals: Last Vital Signs Temp 36.3 C L 10/22/23 10:10 Pulse 75 10/22/23 10:28 Resp 18 10/22/23 10:28 BP 164/76 H 10/22/23 10:28 Pulse Ox 100 10/22/23 10:28 O2 Flow Rate CV Function Including HR & BP: Stable Pain Control: Satisfactory Nausea & Vomiting: Negative Mental Status: Baseline Respiratory Status: Airway Patent Hydration Status: Satisfactory Anesthesia Complications: None
== END 2023-10-22 08:25 | disposition home or self-care (01) ==
LOC: SDS 08:24
PROVIDERS: ATTEND Surgery
PROC: 0DBL8ZZ Excision of Transverse Colon, Via Natural or Artificial Opening Endoscopic (ICD-10-PCS; 2023-10-22)
PROC: 0DBM8ZZ Excision of Descending Colon, Via Natural or Artificial Opening Endoscopic (ICD-10-PCS; 2023-10-22)
PROC: 0DBH8ZZ Excision of Cecum, Via Natural or Artificial Opening Endoscopic (ICD-10-PCS; principal; 2023-10-22 09:30)
DX: Z12.11 Encounter for screening for malignant neoplasm of colon (principal); D12.0 Benign neoplasm of cecum; D12.3 Benign neoplasm of transverse colon; D12.4 Benign neoplasm of descending colon; K57.30 Diverticulosis of large intestine without perforation or abscess without bleeding; I10 Essential (primary) hypertension; Z86.73 Personal history of transient ischemic attack (TIA), and cerebral infarction without residual deficits; G40.909 Epilepsy, unspecified, not intractable, without status epilepticus; F17.210 Nicotine dependence, cigarettes, uncomplicated
CPT/HCPCS: 45380; 45385; J7120

== ENCOUNTER 2023-10-28 16:41 | Outpatient (CLI) | payer MEDICAID | END 2023-10-28 23:59 | disposition critical access hospital (66) | LOC: EMS 16:41 | DX: K62.5 Hemorrhage of anus and rectum (principal); R56.9 Unspecified convulsions; R19.34 Left lower quadrant abdominal rigidity; R51.9 Headache, unspecified; R10.9 Unspecified abdominal pain | CPT/HCPCS: A0425; A0427; A0999 ==

== ENCOUNTER 2023-10-28 17:06 | Inpatient (IN) | payer MEDICAID ==
--- NOTE | 2023-10-28 17:34 | ED Physician Documentation ---
History of Present Illness - Stated complaint Stated Complaint: GI/SZ - Chief complaint Chief Complaint: Neuro - History obtained from History obtained from: Patient - History of Present Illness Timing: Today Pain level max: 1 Pain level now: 1 - Additonal information Additional information: Patient is a 58-year-old female who states that she had a colonoscopy approximately 5 days ago. Multiple polyps removed. She states that today she went to use the bathroom, looked and noted blood in the toilet. The blood was bright red. She states that she is not on blood thinners. She then went out and sat down, she felt a seizure coming on, has a history of epilepsy, takes phenytoin. She states that she then had a witnessed seizure. No injuries. No vomiting. No head injury. 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, LEEP (Cervical surgery) Cardiovascular: Other Neuro: Craniotomy HEENT: Cataracts, Other - Present Medications Home Medications: Ambulatory Orders Medication Instructions Recorded Confirmed Phenytoin Sodium Extended 500 mg PO DAILY 11/09/14 10/21/23 [Dilantin] Loratadine 10 mg PO DAILY PRN 12/08/17 10/21/23 NIFEdipine [Adalat cc] 60 mg PO DAILY 12/08/17 10/21/23 bisoproloL fumarate [Bisoprolol 10 mg PO DAILY 12/08/17 10/21/23 Fumarate] Albuterol Sulfate [Proair Hfa 1 - 2 puffs INH Q4H PRN 10/25/20 10/21/23 Inhaler] Aspirin [Aspirin EC] 975 mg PO TID 10/25/20 10/21/23 Fluticasone [Flonase] 1 sprays KERRIE BID PRN 10/25/20 10/21/23 No122/Iron/Folic Acid 1 each PO DAILY 10/25/20 10/21/23 [ Multi Tablet] - Allergies Allergies/Adverse Reactions: Allergies Allergy/AdvReac Type Severity Reaction Status Date / Time acetaminophen [From Tylenol] AdvReac Nausea Verified 10/28/23 17:11 ibuprofen AdvReac Nausea Verified 10/28/23 17:11 morphine AdvReac Nausea Verified 10/28/23 17:11 - Social History Does the pt smoke?: Yes Smoking Status: Current every day smoker Does the pt drink ETOH?: Yes Does the pt have substance abuse?: No - Immunizations Immunizations are current?: No Immunizations: TDAP >10years/unknown - POLST Patient has POLST: No PD ED PE NORMAL - Vitals Vital signs reviewed: Yes - General General: Alert and oriented X 3, No acute distress - HEENT HEENT: Moist mucous membranes - Neck Neck: Supple, no meningeal sign - Cardiac Cardiac: RRR, Strong equal pulses - Respiratory Respiratory: No respiratory distress, Clear bilaterally - Abdomen Abdomen: Soft, Non tender, Non distended - Back Back: No CVA TTP, No spinal TTP - Derm Derm: Warm and dry - Extremities Extremities: No edema - Neuro Neuro: Alert and oriented X 3 - Psych Psych: Normal mood, Normal affect Results - Vitals Vitals: Vital Signs - 24 hr 10/28/23 10/28/23 10/28/23 17:11 18:15 18:53 Temperature 36.8 C Heart Rate 87 92 83 Respiratory 16 18 18 Rate Blood Pressure 125/87 H 133/76 H 103/61 O2 Saturation 96 96 92 Oxygen O2 Source Room air - Labs Labs: Laboratory Tests 10/28/23 10/28/23 17:25 17:25 WBC 5.4 RBC 3.34 L Hgb 9.9 L Hct 30.0 L MCV 89.8 MCH 29.6 MCHC 33.0 RDW 13.0 Plt Count 253 MPV 8.8 Neut # (Auto) 2.9 Lymph # (Auto) 1.8 [place] # (Auto) 0.5 Eos # (Auto) 0.1 Baso # (Auto) 0.1 Absolute Nucleated RBC 0.00 Nucleated RBC % 0.0 Sodium 128 L Potassium 3.0 L Chloride 92 L Carbon Dioxide 23 Anion Gap 13.0 BUN 8 Creatinine 0.4 L Estimated GFR (MDRD) 165 Glucose 117 H Calcium 8.5 Total Bilirubin 0.2 AST 17 ALT 10 Alkaline Phosphatase 83 Total Protein 6.0 L Albumin 3.5 Globulin 2.5 Albumin/Globulin Ratio 1.4 Lipase < 10 L Phenytoin 5.3 PD Medical Decision Making - ED course Complexity details: reviewed results, re-evaluated patient, considered differential, d/w patient, d/w family ED course: Patient is a 58-year-old female who presents with rectal bleeding today. She is approximately 6 days status post colonoscopy with removal of a large sessile polyp, 10 x 30 mm. Likely that the bleeding today represents bleeding from the polypectomy. Her seizure today is likely recurrence of her known seizure disorder. She was given a dose of Ativan here as she felt she was going to have another seizure. I did discuss the case with Dr. Méndez, general surgery on-call, she recommends repeat CBC in a few hours to see if her hemoglobin is continuing to drop. Her last hemoglobin here was 13. If her hemoglobin continues to drop, would reconsult surgery at that time. Patient will be signed out to Dr. Neil for repeat evaluation. The patient's hyponatremia is chronic and unchanged. This document was made in part using voice recognition software. While efforts are made to proofread this document, sound alike and grammatical errors may occur. Departure - Departure Clinical Impression: Recurrent seizures, Post-polypectomy bleeding, Hyponatremia GI bleeding Qualifiers: GI bleed type/associated pathology: unspecified gastrointestinal hemorrhage type Qualified Code(s): K92.2 - Gastrointestinal hemorrhage, unspecified Condition: Stable Forms: PCP List
[2023-10-28 17:38] LABS: BASOPHILS # (AUTO) 0.1 10^3/uL (0.0-0.1); BASOPHILS % (AUTO) 1.3 %; EOSINOPHILS # (AUTO) 0.1 10^3/uL (0.0-0.7); EOSINOPHILS % (AUTO) 1.9 %; HGB - HEMOGLOBIN 9.9 g/dL (12.0-16.0); LYMPHOCYTES # (AUTO) 1.8 10^3/uL (1.5-3.5); LYMPHOCYTES % (AUTO) 33.6 %; MEAN CORPUSCULAR HEMOGLOBIN 29.6 pg (27.0-31.0); MEAN CORPUSCULAR VOLUME 89.8 fL (81.0-99.0); MEAN PLATELET VOLUME 8.8 fL (7.9-10.8); MONOCYTES # (AUTO) 0.5 10^3/uL (0.0-1.0); MONOCYTES % (AUTO) 8.6 %; NEUTROPHILS # (AUTO) 2.9 10^3/uL (1.5-6.6); NEUTROPHILS % (AUTO) 54.4 %; PLT - PLATELET COUNT 253 10^3/uL (130-450); RED BLOOD COUNT 3.34 10^6/uL (4.20-5.40); WHITE BLOOD COUNT 5.4 x10^3/uL (4.8-10.8)
[2023-10-28 17:54] LABS: ALBUMIN 3.5 g/dL (3.2-5.5); ALBUMIN/GLOBULIN RATIO 1.4 (1.0-2.2); ALKALINE PHOSPHATASE 83 IU/L (42-121); ALT ALANINE AMINOTRANSFERASE 10 IU/L (10-60); AST ASPARTATE AMINOTRANSFERASE 17 IU/L (10-42); BILIRUBIN,TOTAL 0.2 mg/dL (0.2-1.0); BUN - BLOOD UREA NITROGEN 8 mg/dL (6-20); CALCIUM 8.5 mg/dL (8.5-10.3); CARBON DIOXIDE - CO2 23 mmol/L (21-32); CHLORIDE 92 mmol/L (101-111); CREATININE 0.4 mg/dL (0.6-1.3); GFR - MDRD 165 (>89); GLUCOSE 117 mg/dL (74-104); SODIUM 128 mmol/L (135-145)
[2023-10-28 17:55] LABS: LIPASE < 10 U/L (11-82)
[2023-10-28] MEDS: MAG HYDROX/AL HYDROX/SIMETH 30 ML UDC PO STA (18:01)
[2023-10-28] MEDS: SUCRALFATE 1 GM/10 ML UDC PO STA (18:01)
[2023-10-28 18:15] LABS: PHENYTOIN (DILANTIN) 5.3 ug/mL
[2023-10-28] MEDS: LORazepam 2 MG/ML VIAL IVP STA (18:19)
[2023-10-28] MEDS: ONDANSETRON 4 MG/2 ML VIAL IVP STA (18:31)
[2023-10-28 20:03] LABS: BASOPHILS # (AUTO) 0.1 10^3/uL (0.0-0.1); BASOPHILS % (AUTO) 0.9 %; EOSINOPHILS % (AUTO) 0.3 %; HCT - HEMATOCRIT 26.3 % (37.0-47.0); HGB - HEMOGLOBIN 8.8 g/dL (12.0-16.0); LYMPHOCYTES # (AUTO) 1.1 10^3/uL (1.5-3.5); LYMPHOCYTES % (AUTO) 16.3 %; MEAN CORPUSCULAR HEMOGLOBIN 29.9 pg (27.0-31.0); MEAN CORPUSCULAR HGB CONC 33.5 g/dL (32.0-36.0); MEAN CORPUSCULAR VOLUME 89.5 fL (81.0-99.0); MEAN PLATELET VOLUME 8.3 fL (7.9-10.8); MONOCYTES # (AUTO) 0.4 10^3/uL (0.0-1.0); MONOCYTES % (AUTO) 6.6 %; NEUTROPHILS # (AUTO) 4.9 10^3/uL (1.5-6.6); NEUTROPHILS % (AUTO) 75.3 %; PLT - PLATELET COUNT 218 10^3/uL (130-450); RED BLOOD COUNT 2.94 10^6/uL (4.20-5.40); RED CELL DISTRIBUTION WIDTH 12.9 % (12.0-15.0); WHITE BLOOD COUNT 6.6 x10^3/uL (4.8-10.8)
--- NOTE | 2023-10-28 20:26 | ED Physician Documentation ---
ED Addendum - Addendum Addendum: 10/28/23 20:24 Patient had a drop in her hemoglobin 1 unit from arrival and had a large bloody bowel movement. She also had episode of dizziness and hypotension. Discussed with Dr. Jesus who recommends admission [facility] monitoring. If bleeding does not stop then she can have repeat colonoscopy in the morning. Likely symptomatic care only. Ordered a unit of PRBC for overnighHT. Impression 1. anemia 2. rectal bleeding Disposition admit Condition stable
[2023-10-28] MEDS: PANTOPRAZOLE 40 MG VIAL IVP STA (20:29)
[2023-10-28] MEDS ORDERED: SODIUM CHLORIDE FLUSH 0.9% 10 ML SYRINGE IVP PRN (20:36)
--- NOTE | 2023-10-28 20:56 | HISTORY & PHYSICAL EXAMINATION ---
Chief Complaint - Chief Complaint Chief Complaint: GI bleeding History of Present Illness - Admitted From Admitted From:: home - History Obtained From Records Reviewed: yes History obtained from: patient - History of Present Illness HPI Comment/Other: Mrs. Blankenship is a pleasant 58 yo F with a history of hypertension and seizures. She presented for evalaution of acute GI bleeding on the day of presentation. She denies a history of diarrhea, bloody stools or nsaid usage prior to onset. she did undergo a colonocsopy with polyp removal a week prior to her experiencing the bloody bowel movement. She stated she only had one episode. she became lightheaded and dizzy, she also had a seizure following the bloody bowel movement. In the ED her Hgb trend was 9 to 8 after 2 hours of observation. Case was discussed with general surgeon oncgenessi, who felt that patient was appropriate to monitor locally overnight, as her vitals were stable and she did not have any current signs of active bleeding. I performed this visit using real-time telehealth tools, including live-video. I obtained the patient's consent to perform this visit using the available telehealth modalities. 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, LEEP (Cervical surgery) Cardiovascular: reports: Other Neuro: reports: Craniotomy HEENT: reports: Cataracts, Other - POLST Patient has POLST: No Meds/Allgy - Home Medications Home Medications: Ambulatory Orders Medication Instructions Recorded Confirmed Phenytoin Sodium Extended 500 mg PO DAILY 11/09/14 10/21/23 [Dilantin] Loratadine 10 mg PO DAILY PRN 12/08/17 10/21/23 NIFEdipine [Adalat cc] 60 mg PO DAILY 12/08/17 10/21/23 bisoproloL fumarate [Bisoprolol 10 mg PO DAILY 12/08/17 10/21/23 Fumarate] Albuterol Sulfate [Proair Hfa 1 - 2 puffs INH Q4H PRN 10/25/20 10/21/23 Inhaler] Aspirin [Aspirin EC] 975 mg PO TID 10/25/20 10/21/23 Fluticasone [Flonase] 1 sprays KERRIE BID PRN 10/25/20 10/21/23 No122/Iron/Folic Acid 1 each PO DAILY 10/25/20 10/21/23 [ Multi Tablet] - Allergies Allergies/Adverse Reactions: Allergies Allergy/AdvReac Type Severity Reaction Status Date / Time acetaminophen [From Tylenol] AdvReac Nausea Verified 10/28/23 17:11 ibuprofen AdvReac Nausea Verified 10/28/23 17:11 morphine AdvReac Nausea Verified 10/28/23 17:11 Review of Systems - Gastrointestinal Gastrointestinal: reports: Abdominal pain, Bloody stools - Neurological Neurological: reports: Seizures - All Other Systems All Other Systems: reports: Reviewed and negative Exam - Vital Signs Reviewed Vital Signs: Yes Vital Signs: Vital Signs x48h Temp Pulse Resp BP Pulse Ox 10/28/23 20:05 81 18 101/67 94 10/28/23 19:43 88 18 92/55 L 94 10/28/23 18:53 83 18 103/61 92 10/28/23 18:15 92 18 133/76 H 96 10/28/23 17:11 36.8 C 87 16 125/87 H 96 - Physical Exam General Appearance: positive: No acute distress, Alert Eyes Bilateral: positive: Normal inspection Respiratory: positive: Chest non-tender, No respiratory distress, Breath sounds nml Cardiovascular: positive: Regular rate & rhythm, No murmur, No gallop Abdomen: positive: No distention Skin: positive: Color nml Neurologic/Psychiatric: positive: Oriented x3, Mood/affect nml Conclusion/Plan - Problem List (1) GI bleeding Conclusion/Plan: s/p polypectomy. continue to monitor, follow up h and h -continuous telemetry and serial vitals -type and screen, s/p transfuse 1 unit prbc continue to monitor trend -surgery consulted and aware if emergent colonoscopy required for continuos bleeding. Qualifiers: GI bleed type/associated pathology: unspecified gastrointestinal hemorrhage type Qualified Code(s): K92.2 - Gastrointestinal hemorrhage, unspecified (2) Seizure Conclusion/Plan: chornic, home medications reviewed and will resume as tolerted -monitor, seizure precautions, fall precautions (3) Hyponatremia Conclusion/Plan: chronic, close to baseline. - Lab Results Fish Bones: 10/28/23 19:52 10/28/23 17:25 Core Measures - Anticipated LOS I expect patient to be DC'd or transferred within 96 hours.: Yes - DVT/VTE - Prophylaxis VTE/DVT Device ordered at admit?: Yes Telemedicine Consult Details - Provider Location & Consult Time Telemedicine consultation conducted via videoconferencing?: Yes
[2023-10-28] MEDS: SODIUM CHLORIDE 0.9% 1,000 ML IV SCH (21:01)
[2023-10-28] MEDS: PHENYTOIN ER 100 MG CAPSULE PO SCH (21:43)
[2023-10-28] MEDS ORDERED: PHENYTOIN CHEW 50 MG TABLET PO SCH (22:00)
[2023-10-29] MEDS: SODIUM CHLORIDE FLUSH 0.9% 10 ML SYRINGE IVP SCH (00:33)
[2023-10-29 05:58] LABS: BILIRUBIN,URINE NEGATIVE (NEGATIVE); GLUCOSE, URINE (UA) NEGATIVE (NEGATIVE); KETONES,URINE (UA) 15 mg/dL (NEGATIVE); LEUKOCYTE ESTERASE, URINE NEGATIVE (NEGATIVE); NITRITE,URINE NEGATIVE (NEGATIVE); OCCULT BLOOD,URINE MODERATE (NEGATIVE); PROTEIN,URINE NEGATIVE (NEGATIVE); UROBILINOGEN,URINE 0.2 (NORMAL) E.U./dL (NORMAL)
[2023-10-29 06:00] LABS: CLARITY,URINE CLEAR (CLEAR)
[2023-10-29 06:03] LABS: BACTERIA,URINE Rare /HPF (None Seen); SQUAMOUS EPITHELIAL CELL,UR MOD Squamous (<= Few); WBC,URINE 0-3 /HPF (0-5)
[2023-10-29 06:04] LABS: CASTS, URINE 3-5 Hyaline Casts /LPF
[2023-10-29 06:06] LABS: HCT - HEMATOCRIT 28.1 % (37.0-47.0); HGB - HEMOGLOBIN 9.3 g/dL (12.0-16.0)
[2023-10-29] MEDS: PHENYTOIN ER 100 MG CAPSULE PO SCH (08:44)
[2023-10-29] MEDS ORDERED: PHENYTOIN ER 100 MG CAPSULE PO SCH (09:00)
[2023-10-29] MEDS ORDERED: PHENYTOIN CHEW 50 MG TABLET PO SCH (09:00)
[2023-10-29] MEDS: ACETAMINOPHEN 325 MG TABLET PO PRN (10:18)
--- NOTE | 2023-10-29 10:39 | CONSULTATION NOTE ---
Referring Provider Consult Date: 10/29/23 Chief Complaint - Chief Complaint Chief Complaint: bloody stool, seizure History of Present Illness - Admitted From Admitted From:: ED - History Obtained From History obtained from: patient - History of Present Illness HPI Comment/Other: 58yoF s/p colonoscopy on 10/21 (x4 polypectomy including one 30mm cecal polyp removed piecemeal with hot snare). Presented to the ED yesterday after having one large bloody stool (black with streaks of red) at home, followed by a seizure 10 min later. Patient has history of seizure disorder but reports last seizure was 10yrs ago. She had mild abdominal pain/bloating since the colonoscopy, but had been tolerating a regular diet. Yesterday she had mild nausea associated with the bloody stool event. After presenting to the ED she had another bloody stool and reportedly another seizure. After receiving a GI cocktail, she had nonbloody emesis in the ED. In the ED, she was initially normotensive (SBP 130s) with hgb 9, then subsequently had SBP in 90s with hgb down to 8, and thus was admitted to the medicine service for blood transfusion and serial H&H. Overnight she reports another bloody stool; she denies dizziness or lightheadedness; she has been normotensive without tachycardia. She has tolerated clear liquids. She takes a baby aspirin, no anticoagulants, uses tums for GERD/no PPI.She reports a history of hemorrhoids with occasional mild bleeding, no bleeding to the extent experienced yesterday. 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, LEEP (Cervical surgery) Cardiovascular: reports: Other Neuro: reports: Craniotomy HEENT: reports: Cataracts, Other - Family & Social History Living arrangement: At home - POLST Patient has POLST: No Meds/Allgy - Home Medications Home Medications: Ambulatory Orders Medication Instructions Recorded Confirmed Phenytoin Sodium Extended 500 mg PO DAILY 11/09/14 10/21/23 [Dilantin] Loratadine 10 mg PO DAILY PRN 12/08/17 10/21/23 NIFEdipine [Adalat cc] 60 mg PO DAILY 12/08/17 10/21/23 bisoproloL fumarate [Bisoprolol 10 mg PO DAILY 12/08/17 10/21/23 Fumarate] Albuterol Sulfate [Proair Hfa 1 - 2 puffs INH Q4H PRN 10/25/20 10/21/23 Inhaler] Aspirin [Aspirin EC] 975 mg PO TID 10/25/20 10/21/23 Fluticasone [Flonase] 1 sprays KERRIE BID PRN 10/25/20 10/21/23 No122/Iron/Folic Acid 1 each PO DAILY 10/25/20 10/21/23 [ Multi Tablet] - Allergies Allergies/Adverse Reactions: Allergies Allergy/AdvReac Type Severity Reaction Status Date / Time acetaminophen [From Tylenol] AdvReac Nausea Verified 10/28/23 17:11 ibuprofen AdvReac Nausea Verified 10/28/23 17:11 morphine AdvReac Nausea Verified 10/28/23 17:11 Review of Systems - Gastrointestinal Gastrointestinal: reports: Black stools, Bloody stools - Neurological Neurological: reports: Seizures Exam - Vital Signs Reviewed Vital Signs: Yes Vital Signs: Vital Signs x48h Temp Pulse Resp BP BP Pulse Ox 10/29/23 08:00 36.3 C L 93 16 118/66 95 10/29/23 05:33 36.5 C 80 18 133/77 H 95 10/29/23 03:06 36.2 C L 77 16 140/80 H - Physical Exam General Appearance: positive: No acute distress, Alert Eyes Bilateral: positive: Normal inspection, PERRL ENT: positive: ENT inspection nml, Pharynx nml, No signs of dehydration Neck: positive: Nml inspection, Thyroid nml, No JVD, Trachea midline Respiratory: positive: Chest non-tender, No respiratory distress, Breath sounds nml Cardiovascular: positive: Regular rate & rhythm, No murmur, No gallop Peripheral Pulses: positive: 2+ Abdomen: positive: No distention, Tenderness (mild ttp in RLQ, soft/nondistended) Rectal: positive: Non-tender, Black stool (streak of maroon blood on glove, no large volume of blood in rectal vault), Hemorrhoid (sm) Back: positive: Nml inspection, CVA tenderness (L) (small external skin tag observed) Skin: positive: Color nml, No rash, Warm, Dry Extremities: positive: Non-tender, Full ROM, Nml appearance Neurologic/Psychiatric: positive: Oriented x3, Mood/affect nml Conclusion and Plan - Lab Results Laboratory Results 10/29/23 06:01: Hgb 9.3 L, Hct 28.1 L 10/29/23 05:33: Urine Color YELLOW, Urine Clarity CLEAR, Urine pH 6.0, Ur Specific [place] 1.020, Urine Protein NEGATIVE, Urine Glucose (UA) NEGATIVE, Urine Ketones 15 H, Urine Occult Blood MODERATE H, Urine Nitrite NEGATIVE, Urine Bilirubin NEGATIVE, Urine Urobilinogen 0.2 (NORMAL), Ur Leukocyte Esterase NEGATIVE, Urine RBC 6-10 H, Urine WBC 0-3, Ur Squamous Epith Cells MOD Squamous H, Urine Bacteria Rare, Urine Casts 3-5 Hyaline Casts, Ur Microscopic Review INDICATED, Urine Culture Comments NOT INDICATED 10/28/23 20:23: Blood Type A POSITIVE, Antibody Screen NEGATIVE, Crossmatch IS Only See Detail 10/28/23 19:52: WBC 6.6, RBC 2.94 L, Hgb 8.8 L, Hct 26.3 L, MCV 89.5, MCH 29.9, MCHC 33.5, RDW 12.9, Plt Count 218, MPV 8.3, Neut # (Auto) 4.9, Lymph # (Auto) 1.1 L, [place] # (Auto) 0.4, Eos # (Auto) 0.0, Baso # (Auto) 0.1, Absolute Nucleated RBC 0.00, Nucleated RBC % 0.0 10/28/23 17:25: Sodium 128 L, Potassium 3.0 L, Chloride 92 L, Carbon Dioxide 23, Anion Gap 13.0, BUN 8, Creatinine 0.4 L, Estimated GFR (MDRD) 165, Glucose 117 H, Calcium 8.5, Total Bilirubin 0.2, AST 17, ALT 10, Alkaline Phosphatase 83, Total Protein 6.0 L, Albumin 3.5, Globulin 2.5, Albumin/Globulin Ratio 1.4, Lipase < 10 L, Phenytoin 5.3 10/28/23 17:25: WBC 5.4, RBC 3.34 L, Hgb 9.9 L, Hct 30.0 L, MCV 89.8, MCH 29.6, MCHC 33.0, RDW 13.0, Plt Count 253, MPV 8.8, Neut # (Auto) 2.9, Lymph # (Auto) 1.8, [place] # (Auto) 0.5, Eos # (Auto) 0.1, Baso # (Auto) 0.1, Absolute Nucleated RBC 0.00, Nucleated RBC % 0.0 - Diagnosis Diagnosis: GI bleed, suspect lower GI bleed. - Consultation Note Consultation Note: 58yoF with GIB, suspected LGIB (given nonbloody emesis yesterday in ED). She is one week s/p colonoscopy with large cecal polypectomy; I suspect bleeding from the polypectomy site is the source, given dark maroon/black blood and no blood in the rectal vault on SANDRA (as opposed to hemorrhoidal bleeding); she has no history of diverticulosis. Transient hypotension (SBP 90s) with hgb from 9 to 8 in ED; both blood pressure and hgb have appropriately responded to 1U PRBC overnight. Recommend another 24hrs of observation with repeat H&H. If self-limited and hemodynamically stable, can DC tomorrow. If continued symptomatic blood per rectum, will need to consider bowel prep and repeat colonoscopy for endoscopic control of bleeding. - OK for regular diet today - repeat HGB tomorrow AM - ensure trial of ambulation with nurses during observation - seizure mgmt per IM team Concha Méndez DO FACS General surgeon
--- NOTE | 2023-10-29 11:47 | PHARMACY PROGRESS NOTE ---
- Best Possible Medication History Admit Date and Time: 10/28/232035 Processed by: Pharmacy Medications reviewed in ED?: No Medication History completed: Yes Patient Interview: Completed Secondary Source(s): Insurance records As the person ultimately responsible for medication therapy, providers are able to order a medication from an existing home medication list in [facility] via the "Reconcile Routine" prior to Confirmation of that medication by field support specialist. Such practice is discouraged except when the physician, in their clinical judgment, deems that a medical need exists for a medication without regard to previous use.
[2023-10-29] MEDS ORDERED: LORATADINE 10 MG TABLET PO PRN (15:14)
[2023-10-29 16:09] LABS: HCT - HEMATOCRIT 23.5 % (37.0-47.0); HGB - HEMOGLOBIN 7.9 g/dL (12.0-16.0); MEAN CORPUSCULAR HEMOGLOBIN 30.4 pg (27.0-31.0); MEAN CORPUSCULAR HGB CONC 33.6 g/dL (32.0-36.0); MEAN CORPUSCULAR VOLUME 90.4 fL (81.0-99.0); MEAN PLATELET VOLUME 8.4 fL (7.9-10.8); RED BLOOD COUNT 2.6 10^6/uL (4.20-5.40); RED CELL DISTRIBUTION WIDTH 13.2 % (12.0-15.0); WHITE BLOOD COUNT 5.4 x10^3/uL (4.8-10.8)
--- NOTE | 2023-10-29 16:16 | PROVIDER PROGRESS NOTE ---
Progress Note October 29, 2023 4:15 PM The case was discussed with the general surgeon this morning. She has a lower GI bleed most likely at the source of a polypectomy. Our hope was that she would stop bleeding on her own. She did require 1 unit of packed cells yesterday. She started the days on a clear liquid diet. Surgery felt that we could advance her and she has been eating a regular lunch and is about to eat a regular dinner. However she has had 4 bowel movements. She says that they are getting progressively larger with the blood in them. With the last bowel movement she was lightheaded and dizzy. No nausea or chest pain. Blood pressure is stable with this. This morning she was 133/77. This afternoon she is 132/70. 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 She is 93 right now. No further seizures since the ER., I rediscussed the case again with general surgery. General surgery wants me to let her know what the afternoon hemoglobin is. If her hemoglobin is going down, we need to do a bowel prep tonight for colonoscopy tomorrow. She would like some fluticasone for her nose congestion. Active Medications Acetaminophen (Acetaminophen 325 Mg Tablet) 650 mg PO Q4HR PRN PRN Reason: Pain 1 to 4, or Fever Last Admin: 10/29/23 16:03 Dose: 650 mg Sodium Chloride (Normal Saline 0.9%) 1,000 mls @ 100 mls/hr IV .Q10H [facility] Last Admin: 10/29/23 11:00 Dose: 100 mls/hr Loratadine (Loratadine 10 Mg Tablet) 10 mg PO DAILY PRN PRN Reason: Allergy Symptoms Ondansetron HCl (Ondansetron 4 Mg/2 Ml Vial) 4 mg IVP Q6HR PRN PRN Reason: Nausea / Vomiting Oxycodone HCl (Oxycodone 5 Mg Tablet) 5 mg PO Q6HR PRN PRN Reason: Pain 5 to 7 Patient Own Med ( Bisoprolol Fumarate [Bisoprolol Fumarate ] 10 Mg Tablet) 1 each PO HS [facility] Patient Own Medication (Patient Own Med) 1 each KERRIE BID [facility] Phenytoin Sodium (Phenytoin Er 100 Mg Capsule) 300 mg PO [facility] Last Admin: 10/28/23 21:43 Dose: 300 mg Phenytoin Sodium (Phenytoin Er 100 Mg Capsule) 200 mg PO DAILY [facility] Last Admin: 10/29/23 08:44 Dose: 200 mg Sodium Chloride (Sodium Chloride Flush 0.9% 10 Ml Syringe) 10 ml IVP PRN PRN PRN Reason: NEEDED PER PROVIDER ORDERS Sodium Chloride (Sodium Chloride Flush 0.9% 10 Ml Syringe) 10 ml IVP 0100,0900,1700 [facility] Last Admin: 10/29/23 16:03 Dose: 10 ml Home Meds: Phenytoin Sodium Extended [Dilantin] 200 mg PO DAILY 11/09/14 Loratadine 10 mg PO DAILY PRN 12/08/17 NIFEdipine [Adalat cc] 60 mg PO DAILY 12/08/17 bisoproloL fumarate [Bisoprolol Fumarate] 10 mg PO HS 12/08/17 Albuterol Sulfate [Proair Hfa Inhaler] 1 - 2 puffs INH Q4H PRN 10/25/20 Aspirin [Aspirin EC] 975 mg PO BID 10/25/20 Fluticasone [Flonase] 1 sprays KERRIE BID 10/25/20 Multivitamin,Therapeutic [Thera-Tabs] 1 each PO DAILY 10/29/23 Phenytoin [Dilantin] 300 mg PO HS 10/29/23 hydroCHLOROthiazide [Hydrodiuril] 12.5 mg PO DAILY 10/29/23 Exam: Temperature is 36.6, heart rate 93, blood pressure 132/70, respirations 14, 96% on room air. No abdominal pain. But hip and leg hurt. 5 feet 9 inches tall, 64 kg. Face looks slightly swollen. Bags under the eyes, nasolabial fold edema, upper lip edema. She is congested and nasal. She says she has a lot of allergies. Lungs have faint, faint wheezing in the mid lungs to lower lung cordon. Clear upper lung cordon. No coughing no congestion no phlegm and no use of accessory muscles. Regular rate and rhythm Abdomen is soft, nontender, normal bowel sounds. No peritoneal findings at all. Extremities warm, no edema Neurologically is alert, oriented to person, place, time and situation. Very disappointed about her bleeding and still being here. Lab: Laboratory Tests 10/28/23 10/28/23 10/29/23 17:25 19:52 06:01 Hgb 9.9 L 8.8 L 9.3 L 10/29/23 16:03 Hgb 7.9 L Assessment/Plan: 1. Lower GI bleed with bright red blood per rectum This is attributed to the polypectomy she had just prior to admission. It was done with a hot snare and the adenoma was about 3 cm. General surgery was hoping not to have any intervention for her. However she continues to bleed. We will reassess this afternoon with a hemoglobin. As stated above, if her hemoglobin is dropping, she will need a bowel prep tonight for colonoscopy tomorrow.Her hemoglobin did drop from 9.3-7.9. Continue to monitor serial hemograms and transfuse if she becomes symptomatic with hypotension or goes below 7 g of hemoglobin. Change back to clear liquids. Plan for bowel prep since she dropped. 2. Seizure disorder. She had several seizures with her bowel movements at home. Then in the ER. 1 emesis that was nonbloody. She had 1 episode of hypotension where she went from 1 30-95 but that responded to fluid bolus and transfusion of 1 packed cell. I resumed her Dilantin. Will continue to monitor. 3. Patient has hyponatremia. In looking at the medical record that is chronic. Her sodium varies between 127 on the lowest, and 133 on the highest. September 2022 129, June 2023 129, with his admission 128. She is on hydrochlorothiazide. No history of alcoholic liver disease, congestive heart failure. Plan is to continue to monitor. I will do a serum cortisol tomorrow morning. 4. COPD I assume this is her dx since she smokes. She declines the nicotine patch and wants the nasal spray but it's not on formulary. Plan: I will order Afrin or it's substitute I will order Duoneb prn
[2023-10-29] MEDS: POTASSIUM CHLORIDE 20 MEQ TABLET PO ONE (16:32)
[2023-10-29] MEDS: oxyCODONE 5 MG TABLET PO PRN (17:09)
[2023-10-29] MEDS ORDERED: MORPHINE 10 MG/ML VIAL IVP ONE (19:15)
[2023-10-29] MEDS ORDERED: LIDOCAINE PATCH 5% TOP PRN (19:15)
[2023-10-29] MEDS: MORPHINE 2 MG/ML CARPUJECT IVP ONE (19:54)
[2023-10-29] MEDS: bisacodyL 5 MG TABLET PO ONE (20:43)
[2023-10-29] MEDS: FLUTICASONE NAS SCH (20:43)
[2023-10-29] MEDS: BISOPROLOL FUMARATE 10 MG PO SCH (20:44)
[2023-10-29] MEDS: PEG 3350/NA SULF,BICARB,CL/KCL 4,000 ML BOTTLE PO ONE (20:47)
[2023-10-29] MEDS ORDERED: PHENYTOIN 100 MG PO SCH (21:00)
[2023-10-29] MEDS: ONDANSETRON 4 MG/2 ML VIAL IVP PRN (21:56)
[2023-10-29 22:07] LABS: HCT - HEMATOCRIT 22.7 % (37.0-47.0); HGB - HEMOGLOBIN 7.4 g/dL (12.0-16.0)
[2023-10-30 05:45] LABS: BASOPHILS # (AUTO) 0.1 10^3/uL (0.0-0.1); BASOPHILS % (AUTO) 1.1 %; EOSINOPHILS # (AUTO) 0.1 10^3/uL (0.0-0.7); EOSINOPHILS % (AUTO) 2.5 %; LYMPHOCYTES # (AUTO) 1.8 10^3/uL (1.5-3.5); LYMPHOCYTES % (AUTO) 37.8 %; MEAN CORPUSCULAR HEMOGLOBIN 29.4 pg (27.0-31.0); MEAN CORPUSCULAR HGB CONC 31.7 g/dL (32.0-36.0); MEAN CORPUSCULAR VOLUME 92.8 fL (81.0-99.0); MONOCYTES # (AUTO) 0.5 10^3/uL (0.0-1.0); MONOCYTES % (AUTO) 10.2 %; NEUTROPHILS # (AUTO) 2.3 10^3/uL (1.5-6.6); PLT - PLATELET COUNT 137 10^3/uL (130-450); RED BLOOD COUNT 1.53 10^6/uL (4.20-5.40); RED CELL DISTRIBUTION WIDTH 13.5 % (12.0-15.0); WHITE BLOOD COUNT 4.7 x10^3/uL (4.8-10.8)
[2023-10-30 05:53] LABS: HCT - HEMATOCRIT 14.2 % (37.0-47.0); HGB - HEMOGLOBIN 4.5 g/dL (12.0-16.0)
--- NOTE | 2023-10-30 10:02 | ANESTHESIA ---
Pre-Anesthesia VS, & Labs - Diagnosis Diagnosis GI bleed, suspect lower GI bleed. - Procedure colonoscopy Vital Signs: Temp Pulse Resp BP Pulse Ox O2 Flow Rate 36.4 C L 104 H 16 123/71 97 10/30/23 09:53 10/30/23 09:53 10/30/23 09:53 10/30/23 09:53 10/30/23 09:53 Height: 5 ft 9 in Weight (kg): 64 kg Body Mass Index: 20.8 BMI Classification: Normal - NPO >8 hours - Is Patient ?: No - Lab Results Current Lab Results: Laboratory Tests 10/30/23 05:24: WBC 4.7 L, RBC 1.53 L, Hgb 4.5 L*, Hct 14.2 L*, MCV 92.8, MCH 29.4, MCHC 31.7 L, RDW 13.5, Plt Count 137, MPV 9.0, Neut # (Auto) 2.3, Lymph # (Auto) 1.8, Union # (Auto) 0.5, Eos # (Auto) 0.1, Baso # (Auto) 0.1, Absolute Nucleated RBC 0.00, Nucleated RBC % 0.0 10/29/23 21:59: Hgb 7.4 L, Hct 22.7 L 10/29/23 16:03: WBC 5.4, RBC 2.60 L, Hgb 7.9 L, Hct 23.5 L, MCV 90.4, MCH 30.4, MCHC 33.6, RDW 13.2, Plt Count 182, MPV 8.4 10/29/23 06:01: Hgb 9.3 L, Hct 28.1 L 10/28/23 20:23: Blood Type A POSITIVE, Antibody Screen NEGATIVE, Crossmatch IS Only See Detail 10/28/23 19:52: WBC 6.6, RBC 2.94 L, Hgb 8.8 L, Hct 26.3 L, MCV 89.5, MCH 29.9, MCHC 33.5, RDW 12.9, Plt Count 218, MPV 8.3, Neut # (Auto) 4.9, Lymph # (Auto) 1.1 L, Union # (Auto) 0.4, Eos # (Auto) 0.0, Baso # (Auto) 0.1, Absolute Nucleated RBC 0.00, Nucleated RBC % 0.0 10/28/23 17:25: Sodium 128 L, Potassium 3.0 L, Chloride 92 L, Carbon Dioxide 23, Anion Gap 13.0, BUN 8, Creatinine 0.4 L, Estimated GFR (MDRD) 165, Glucose 117 H , Calcium 8.5, Total Bilirubin 0.2, AST 17, ALT 10, Alkaline Phosphatase 83, Total Protein 6.0 L, Albumin 3.5, Globulin 2.5, Albumin/Globulin Ratio 1.4, Lipase < 10 L, Phenytoin 5.3 10/28/23 17:25: WBC 5.4, RBC 3.34 L, Hgb 9.9 L, Hct 30.0 L, MCV 89.8, MCH 29.6, MCHC 33.0, RDW 13.0, Plt Count 253, MPV 8.8, Neut # (Auto) 2.9, Lymph # (Auto) 1.8, Union # (Auto) 0.5, Eos # (Auto) 0.1, Baso # (Auto) 0.1, Absolute Nucleated RBC 0.00, Nucleated RBC % 0.0 Fish Bones: 10/30/23 05:24 10/28/23 17:25 Home Medications and Allergies Home Medications: Ambulatory Orders Multivitamin,Therapeutic [Thera-Tabs] 1 each PO DAILY 10/29/23 Phenytoin [Dilantin] 300 mg PO HS 10/29/23 hydroCHLOROthiazide [Hydrodiuril] 12.5 mg PO DAILY 10/29/23 Active Medications Acetaminophen (Acetaminophen 325 Mg Tablet) 650 mg PO Q4HR PRN PRN Reason: Pain 1 to 4, or Fever Last Admin: 10/29/23 16:03 Dose: 650 mg Sodium Chloride (Normal Saline 0.9%) 1,000 mls @ 100 mls/hr IV .Q10H RUTHIE Last Infusion: 10/30/23 06:58 Dose: 0 mls/hr Sodium Chloride (Normal Saline 0.9%) 1,000 mls @ 0 mls/hr IV .Q0M RUTHIE Lidocaine (Lidocaine Patch 5%) 1 patch TOP DAILY PRN PRN Reason: Moderate Pain (Level 4-6) Loratadine (Loratadine 10 Mg Tablet) 10 mg PO DAILY PRN PRN Reason: Allergy Symptoms Ondansetron HCl (Ondansetron 4 Mg/2 Ml Vial) 4 mg IVP Q6HR PRN PRN Reason: Nausea / Vomiting Last Admin: 10/29/23 21:56 Dose: 4 mg Oxycodone HCl (Oxycodone 5 Mg Tablet) 5 mg PO Q6HR PRN PRN Reason: Pain 5 to 7 Last Admin: 10/30/23 08:49 Dose: 5 mg Patient Own Med ( Bisoprolol Fumarate [Bisoprolol Fumarate ] 10 Mg Tablet) 1 each PO [facility] Last Admin: 10/29/23 20:44 Dose: Not Given Patient Own Medication (Patient Own Med) 1 each KERRIE BID [facility] Last Admin: 10/29/23 20:43 Dose: Not Given Phenytoin Sodium (Phenytoin Er 100 Mg Capsule) 300 mg PO [facility] Last Admin: 10/29/23 20:43 Dose: 300 mg Phenytoin Sodium (Phenytoin Er 100 Mg Capsule) 200 mg PO DAILY [facility] Last Admin: 10/30/23 08:49 Dose: 200 mg Sodium Chloride (Sodium Chloride Flush 0.9% 10 Ml Syringe) 10 ml IVP PRN PRN PRN Reason: NEEDED PER PROVIDER ORDERS Sodium Chloride (Sodium Chloride Flush 0.9% 10 Ml Syringe) 10 ml IVP 01 00,0900,1700 [facility] Last Admin: 10/30/23 08:50 Dose: Not Given Phenytoin Sodium Extended [Dilantin] 200 mg PO DAILY 11/09/14 Loratadine 10 mg PO DAILY PRN 12/08/17 NIFEdipine [Adalat cc] 60 mg PO DAILY 12/08/17 bisoproloL fumarate [Bisoprolol Fumarate] 10 mg PO 12/08/17 Albuterol Sulfate [Proair Hfa Inhaler] 1 - 2 puffs INH Q4H PRN 10/25/20 Aspirin [Aspirin EC] 975 mg PO BID 10/25/20 Fluticasone [Flonase] 1 sprays KERRIE BID 10/25/20 Multivitamin,Therapeutic [Thera-Tabs] 1 each PO DAILY 10/29/23 Phenytoin [Dilantin] 300 mg PO HS 10/29/23 hydroCHLOROthiazide [Hydrodiuril] 12.5 mg PO DAILY 10/29/23 Allergies/Adverse Reactions: Allergies Allergy/AdvReac Type Severity Reaction Status Date / Time acetaminophen [From Tylenol] AdvReac Nausea Verified 10/28/23 17:11 ibuprofen AdvReac Nausea Verified 10/28/23 17:11 morphine AdvReac Nausea Verified 10/28/23 17:11 Anes History & Medical History - Anesthetic History Anesthesia Complications: reports: No previous complications Family history of Anesthesia Complications: Denies Family history of Malignant Hyperthermia: Denies - Medical History Cardiovascular: reports: Hypertension, Other Pulmonary: reports: None Gastrointestinal: reports: GERD Urinary: reports: None Neuro: reports: TIA, Seizure disorder Musculoskeletal: reports: Osteoarthritis, Chronic back pain Endocrine/Autoimmune: reports: None Blood Disorders: reports: None Skin: reports: Psoriasis Smoking Status: Current every day smoker Psychosocial: reports: No issues indicated History of Cancer?: Yes - Surgical History Eyes Ears Nose Throat (EENT): reports: Cataracts, Other Cardiothoracic: reports: Other Gynecologic: reports: Dilation and currettage, LEEP (Cervical surgery) Neurologic: reports: Craniotomy Orthopedic: reports: Other Exam General: Alert, Oriented x3, Cooperative Dental: Poor dentition Mouth Openin Fingerbreadth Neck Mobility: Normal Mallampati classification: II Thyromental Distance: 4-6 cm Respiratory: Lungs clear Cardiovascular: Regular rate Plan Anesthesia Type: General Consent for Procedure(s) Verified and Reviewed: Yes Code Status: Attempt Resuscitation ASA classification: 3-Severe systemic disease Is this case an emergency?: Yes
--- NOTE | 2023-10-30 10:47 | PROVIDER PROGRESS NOTE ---
Subjective - General Admit Date: 10/28/23 - Review of Systems All Other Systems: positive: Reviewed and negative - Other Other Information/Narrative: Continued melena overnight, with syncopal episode on toilet and associated lightheadedness. Tachycardic with hgb down to 4 this AM, prompting another 2U PRBC. Mild abdominal discomfort, nonbloody emesis with bowel prep. Reports only blood, no stool per rectum, not clearing with bowel prep . Objective - Patient Data Reviewed Vital Signs: Yes Vital Signs: Vital Signs x48h Temp Pulse Pulse Resp BP BP Pulse Ox 10/30/23 10:08 36.3 C L 100 19 110/77 96 10/30/23 09:53 36.4 C L 104 H 16 123/71 97 10/30/23 09:43 36.4 C L 102 H 18 123/71 96 10/30/23 07:31 36.9 C 117 H 20 118/69 98 10/30/23 06:52 114 H 145/77 H 10/30/23 06:49 36.6 C 110 H 18 145/65 H 10/30/23 06:39 36.6 C 101 H 16 118/64 10/30/23 06:32 36.8 C 104 H 16 114/69 10/30/23 05:00 37.2 C 110 H 18 110/60 96 Weight: Weight 10/28/23 10/29/23 10/30/23 23:59 23:59 23:59 Weight (kg) 64 kg 64 kg Intake & Output: Intake and Output Totals x24h 10/28/23 10/29/23 10/30/23 23:59 23:59 23:59 Intake Total 5600.000 1106.667 Output Total 1225 250 Balance 4375.000 856.667 - Lab Results Lab Results: 10/30/23 05:24 10/28/23 17:25 Other Lab Results: Lab Results x24hrs 10/30/23 10/29/23 10/29/23 Range/Units 05:24 21:59 16:03 WBC 4.7 L 5.4 (4.8-10.8) x10^3/uL RBC 1.53 L 2.60 L (4.20-5.40) 10^6/uL Hgb 4.5 L* 7.4 L 7.9 L (12.0-16.0) g/dL Hct 14.2 L* 22.7 L 23.5 L (37.0-47.0) % MCV 92.8 90.4 (81.0-99.0) fL MCH 29.4 30.4 (27.0-31.0) pg MCHC 31.7 L 33.6 (32.0-36.0) g/dL RDW 13.5 13.2 (12.0-15.0) % Plt Count 137 182 (130-450) 10^3/uL MPV 9.0 8.4 (7.9-10.8) fL Neut # (Auto) 2.3 (1.5-6.6) 10^3/uL Lymph # (Auto) 1.8 (1.5-3.5) 10^3/uL Calloway # (Auto) 0.5 (0.0-1.0) 10^3/uL Eos # (Auto) 0.1 (0.0-0.7) 10^3/uL Baso # (Auto) 0.1 (0.0-0.1) 10^3/uL Absolute Nucleated RBC 0.00 x10^3/uL Nucleated RBC % 0.0 /100WBC Blood Type Antibody Screen Crossmatch IS Only 10/28/23 Range/Units 20:23 WBC (4.8-10.8) x10^3/uL RBC (4.20-5.40) 10^6/uL Hgb (12.0-16.0) g/dL Hct (37.0-47.0) % MCV (81.0-99.0) fL MCH (27.0-31.0) pg MCHC (32.0-36.0) g/dL RDW (12.0-15.0) % Plt Count (130-450) 10^3/uL MPV (7.9-10.8) fL Neut # (Auto) (1.5-6.6) 10^3/uL Lymph # (Auto) (1.5-3.5) 10^3/uL C[place]ay # (Auto) (0.0-1.0) 10^3/uL Eos # (Auto) (0.0-0.7) 10^3/uL Baso # (Auto) (0.0-0.1) 10^3/uL Absolute Nucleated RBC x10^3/uL Nucleated RBC % /100WBC Blood Type A POSITIVE Antibody Screen NEGATIVE Crossmatch IS Only See Detail - Current Medications Current Medications: Current Medications Generic Name Dose Route Start Last Admin Trade Name Freq PRN Reason Stop Dose Admin Acetaminophen 650 mg 10/28/23 20:36 10/29/23 16:03 Acetaminophen 325 Mg Tablet PO 650 mg Q4HR PRN Administration Pain 1 to 4, or Fever Sodium Chloride 1,000 mls @ 100 mls/hr 10/28/23 21:00 10/30/23 06:58 Normal Saline 0.9% IV 0 mls/hr .Q10H RUTHIE Infusion Ondansetron HCl 4 mg 10/28/23 20:39 10/29/23 21:56 Ondansetron 4 Mg/2 Ml Vial IVP 4 mg Q6HR PRN Administration Nausea / Vomiting Oxycodone HCl 5 mg 10/28/23 20:36 10/30/23 08:49 Oxycodone 5 Mg Tablet PO 5 mg Q6HR PRN Administration Pain 5 to 7 Patient Own Med ( 1 each 10/29/23 21:00 10/29/23 20:44 Bisoprolol Fumarate PO Not Given [Bisoprolol Fumarate HS RUTHIE ] 10 Mg Tablet) Patient Own Medication 1 each 10/29/23 21:00 10/29/23 20:43 Patient Own Med KERRIE Not Given BID RUTHIE Phenytoin Sodium 300 mg 10/28/23 22:00 10/29/23 20:43 Phenytoin Er 100 Mg Capsule PO 300 mg HS RUTHIE Administration Phenytoin Sodium 200 mg 10/29/23 09:00 10/30/23 08:49 Phenytoin Er 100 Mg Capsule PO 200 mg DAILY RUTHIE Administration Sodium Chloride 10 ml 10/29/23 01:00 10/30/23 08:50 Sodium Chloride Flush 0.9% 10 Ml Syringe IVP Not Given 0100,0900,1700 RUTHIE - Physical Exam General Appearance: positive: No acute distress, Alert Eyes Bilateral: positive: Normal inspection, PERRL ENT: positive: ENT inspection nml, Pharynx nml Neck: positive: Nml inspection, No JVD Respiratory: positive: Chest non-tender, No respiratory distress, Breath sounds nml Cardiovascular: positive: Tachycardia Abdomen: positive: Non-tender, No distention Skin: positive: Pallor Extremities: positive: Non-tender, Full ROM, Nml appearance Neurologic/Psychiatric: positive: Oriented x3, Mood/affect nml ABX Reporting Has patient been on IV antibiotics over the past 48 hours?: No Impression/Plan - Problem List Problem List: 58yoF with LGIB, suspected from polypectomy site from colonoscopy on 10/21 (3cm polyp taken from cecum with hot snare, 3 other smaller polyps throughout colon). Continues to have symptomatic melena with tachycardia (normotensive) and hgb to 4 requiring total of 3U PRBC now. Discussed clinical condition with patient, SO, and parents (all at bedside) and indication for colonoscopy today to attempt endoscopic control of GIB. Discussed risks (bowel perforation, inability to control bleeding), all understand and agree to proceed. Discussed with [employer] and will complete 2nd unit of blood this AM prior to going to OR. - complete 2nd unit PRBC - continue NPO, complete as much bowel prep as tolerated - to OR for colonoscopy with endoscopic control of hemorrhage after transfusion. - if unsuccessful and continued symptomatic hemorrhage, next step would be IR intervention, which would require transfer. Concha Méndez DO FACS General Surgeon
[2023-10-30] MEDS ORDERED: PROPOFOL 500 MG/50 ML 500 MG/50 ML VIAL ONE (11:06)
--- NOTE | 2023-10-30 11:15 | XRAY Report ---
PROCEDURE: No-Charge 1V Abdomen INDICATIONS: post-polypectomy GI bleed, rule out free air TECHNIQUE: 1 view of the abdomen were acquired. COMPARISON: None. FINDINGS: Surgical changes and devices: None. Bowel: No pneumoperitoneum. The bowel gas pattern is normal. Stool load within normal limits. Soft tissues: No masses; visualized solid organ contours appear normal in size. No suspicious abdom inal calcifications. Bones: No suspicious bony abnormalities. IMPRESSION: Unremarkable abdominal radiograph. No free air. Reviewed by: Ifeanyi Alonzo MD on 10/30/2023 10:13 AM JACOB Approved by: Ifeanyi Alonzo MD on 10/30/2023 10:13 AM [place] Station ID: [id number]
--- NOTE | 2023-10-30 11:57 | PROVIDER PROGRESS NOTE ---
Subjective - Prog Note Date Prog Note Date: 10/30/23 Prog Note Time: 11:51 - Subjective Pt reports feeling: Worse Subjective: I left yesterday evening with instructions to the nurse to transfuse her if her hemoglobin drops below 7 with her 10 PM check. She had a large bowel movement approximately 4 PM with lightheadedness, dizziness. She had several bowel movements during the day that were getting progressively larger and bloodier. I came in this morning to find out that she had a very large bowel movement in the respiratory support technician hours. Approximately 6 AM. Had syncope with that. Hemoglobin has dropped below 5. I am transfusing her 2 units and have discussed the case with general surgery. The patient is miserable. Tearful. Already had the prep last night for colonoscopy this morning. She denies abdominal pain. No emesis. No chest pain. Just wiped out with fatigue. In the ER she had seizures with her anemia. She has not had any further seizures since on MedSurg. Current Medications - Current Medications Current Medications: Active Medications Acetaminophen (Acetaminophen 325 Mg Tablet) 650 mg PO Q4HR PRN PRN Reason: Pain 1 to 4, or Fever Last Admin: 10/29/23 16:03 Dose: 650 mg Sodium Chloride (Normal Saline 0.9%) 1,000 mls @ 100 mls/hr IV .Q10H [facility] Last Infusion: 10/30/23 06:58 Dose: 0 mls/hr Sodium Chloride (Normal Saline 0.9%) 1,000 mls @ 0 mls/hr IV .Q0M RUTHIE Lidocaine (Lidocaine Patch 5%) 1 patch TOP DAILY PRN PRN Reason: Moderate Pain (Level 4-6) Loratadine (Loratadine 10 Mg Tablet) 10 mg PO DAILY PRN PRN Reason: Allergy Symptoms Ondansetron HCl (Ondansetron 4 Mg/2 Ml Vial) 4 mg IVP Q6HR PRN PRN Reason: Nausea / Vomiting Last Admin: 10/29/23 21:56 Dose: 4 mg Oxycodone HCl (Oxycodone 5 Mg Tablet) 5 mg PO Q6HR PRN PRN Reason: Pain 5 to 7 Last Admin: 10/30/23 08:49 Dose: 5 mg Patient Own Med ( Bisoprolol Fumarate [Bisoprolol Fumarate ] 10 Mg Tablet) 1 each PO HS [facility] Last Admin: 10/29/23 20:44 Dose: Not Given Patient Own Medication (Patient Own Med) 1 each KERRIE BID [facility] Last Admin: 10/29/23 20:43 Dose: Not Given Phenytoin Sodium (Phenytoin Er 100 Mg Capsule) 300 mg PO [facility] Last Admin: 10/29/23 20:43 Dose: 300 mg Phenytoin Sodium (Phenytoin Er 100 Mg Capsule) 200 mg PO DAILY [facility] Last Admin: 10/30/23 08:49 Dose: 200 mg Sodium Chloride (Sodium Chloride Flush 0.9% 10 Ml Syringe) 10 ml IVP PRN PRN PRN Reason: NEEDED PER PROVIDER ORDERS Sodium Chloride (Sodium Chloride Flush 0.9% 10 Ml Syringe) 10 ml IVP 0100,0900,1700 [facility] Last Admin: 10/30/23 08:50 Dose: Not Given Phenytoin Sodium Extended [Dilantin] 200 mg PO DAILY 11/09/14 Loratadine 10 mg PO DAILY PRN 12/08/17 NIFEdipine [Adalat cc] 60 mg PO DAILY 12/08/17 bisoproloL fumarate [Bisoprolol Fumarate] 10 mg PO 12/08/17 Albuterol Sulfate [Proair Hfa Inhaler] 1 - 2 puffs INH Q4H PRN 10/25/20 Aspirin [Aspirin EC] 975 mg PO BID 10/25/20 Fluticasone [Flonase] 1 sprays KERRIE BID 10/25/20 Multivitamin,Therapeutic [Thera-Tabs] 1 each PO DAILY 10/29/23 Phenytoin [Dilantin] 300 mg PO 10/29/23 hydroCHLOROthiazide [Hydrodiuril] 12.5 mg PO DAILY 10/29/23 Objective - Vital Signs/Intake & Output Reviewed Vital Signs: Yes Vital Signs: Vital Signs x48h Temp Pulse Pulse Resp BP BP Pulse Ox 10/30/23 10:08 36.3 C L 100 19 110/77 96 10/30/23 09:53 36.4 C L 104 H 16 123/71 97 10/30/23 09:43 36.4 C L 102 H 18 123/71 96 10/30/23 07:31 36.9 C 117 H 20 118/69 98 10/30/23 06:52 114 H 145/77 H 10/30/23 06:49 36.6 C 110 H 18 145/65 H 10/30/23 06:39 36.6 C 101 H 16 118/64 10/30/23 06:32 36.8 C 104 H 16 114/69 10/30/23 05:00 37.2 C 110 H 18 110/60 96 Intake & Output: Intake & Output 10/27/23 10/28/23 10/29/23 10/30/23 23:59 23:59 23:59 23:59 Intake Total 5600.000 1106.667 Output Total 1225 250 Balance 4375.000 856.667 - Objective General Appearance: positive: Alert, Moderate distress ( Physically she is just tired, more emotionally upset than anything else because of the illness and she is afraid) Eyes Bilateral: positive: PERRL ENT: positive: Pharynx nml Neck: positive: No JVD. negative: Stiff neck Respiratory: positive: No respiratory distress. negative: Wheezes, Rales, Rhonc hi Cardiovascular: positive: Regular rate & rhythm Abdomen: positive: Non-tender, No organomegaly, Nml bowel sounds, No distention Skin: positive: Warm, Dry Extremities: positive: Full ROM, No pedal edema Neurologic/Psychiatric: positive: Oriented x3, CN's nml (2-12), Motor nml, Mood/affect nml - Lab Results Fish Bones: 10/30/23 05:24 10/28/23 17:25 Other Labs: Lab Results x24hrs 10/30/23 10/29/23 10/29/23 Range/Units 05:24 21:59 16:03 WBC 4.7 L 5.4 (4.8-10.8) x10^3/uL RBC 1.53 L 2.60 L (4.20-5.40) 10^6/uL Hgb 4.5 L* 7.4 L 7.9 L (12.0-16.0) g/dL Hct 14.2 L* 22.7 L 23.5 L (37.0-47.0) % MCV 92.8 90.4 (81.0-99.0) fL MCH 29.4 30.4 (27.0-31.0) pg MCHC 31.7 L 33.6 (32.0-36.0) g/dL RDW 13.5 13.2 (12.0-15.0) % Plt Count 137 182 (130-450) 10^3/uL MPV 9.0 8.4 (7.9-10.8) fL Neut # (Auto) 2.3 (1.5-6.6) 10^3/uL Lymph # (Auto) 1.8 (1.5-3.5) 10^3/uL [place] # (Auto) 0.5 (0.0-1.0) 10^3/uL Eos # (Auto) 0.1 (0.0-0.7) 10^3/uL Baso # (Auto) 0.1 (0.0-0.1) 10^3/uL Absolute Nucleated RBC 0.00 x10^3/uL Nucleated RBC % 0.0 /100WBC Blood Type Antibody Screen Crossmatch IS Only 10/28/23 Range/Units 20:23 WBC (4.8-10.8) x10^3/uL RBC (4.20-5.40) 10^6/uL Hgb (12.0-16.0) g/dL Hct (37.0-47.0) % MCV (81.0-99.0) fL MCH (27.0-31.0) pg MCHC (32.0-36.0) g/dL RDW (12.0-15.0) % Plt Count (130-450) 10^3/uL MPV (7.9-10.8) fL Neut # (Auto) (1.5-6.6) 10^3/uL Lymph # (Auto) (1.5-3.5) 10^3/uL [place] # (Auto) (0.0-1.0) 10^3/uL Eos # (Auto) (0.0-0.7) 10^3/uL Baso # (Auto) (0.0-0.1) 10^3/uL Absolute Nucleated RBC x10^3/uL Nucleated RBC % /100WBC Blood Type A POSITIVE Antibody Screen NEGATIVE Crossmatch IS Only See Detail ABX Reporting Has patient been on IV antibiotics over the past 48 hours?: No Assessment/Plan - Problem List (1) Post-polypectomy bleeding Impression: This is attributed to the polypectomy she had just prior to admission. It was done with a hot snare and the adenoma was about 3 cm. General surgery was hoping not to have any intervention for her. fortunately she continues to bleed. She is already received 2 units of blood. She is receiving 2 more units this morning and my order. She is going to go to the OR to get a colonoscopy with cautery and or clips. If this does not work I am going to have to transfer her for interventional radiology at a higher level of care facility. We do not do that here. If that does not work she may need a colectomy. Anesthesia and surgery asking me how fast we can transfuser so that we can get her to the OR. I told him that she is symptomatic. We do not have to wait the necessary 4 hours for each unit and we could transfuse it even faster at 2 hours. Plan: Discussed with general surgery already. To go to the OR this morning after finishing second unit of blood. (2) Acute blood loss anemia Impression: Started at 9.9 g of hemoglobin. Dropped to 8.8 with hypotension and near syncope and seizures in the ER. Transfused 1 unit of blood. Further symptoms later on in the day and she was transfused a second unit of blood. Yesterday morning she was 9.3 g of hemoglobin with this. Over the course of the she has continued to have bloody bowel movements. She was 7.9, then 7.4, and this morning she is 4.5 g of hemoglobin. She has dropped her pressure with this from the 140s to 118. Pulse is tachycardic in the low 100s. Definitely symptomatic from a hemodynamic perspective. Status post 2 units of blood Plan transfused 2 more units of blood 3. Seizure disorder. She had several seizures with her bowel movements at home. Then in the ER. 1 emesis that was nonbloody. She had 1 episode of hypotension where she went from 1 30-95 but that responded to fluid bolus and transfusion of 1 packed cell. I resumed her Dilantin. Will continue to monitor. 4. Patient has hyponatremia. In looking at the medical record that is chronic. Her sodium varies between 127 on the lowest, and 133 on the highest. September 2022 129, June 2023 129, with his admission 128. She is on hydrochlorothiazide. No history of alcoholic liver disease, congestive heart failure. Plan is to continue to monitor. I will do a serum cortisol tomorrow morning. 5 COPD I assume this is her dx since she smokes. She declines the nicotine patch and wants the nasal spray but it's not on formulary. I will order Afrin or a substitute, and DuoNeb as needed
[2023-10-30] MEDS ORDERED: MIDAZOLAM 2 MG/2 ML VIAL ONE (12:03)
[2023-10-30] MEDS ORDERED: OXYMETAZOLINE HCL 100 SPRAYS BOTTLE NAS PRN (12:09)
[2023-10-30] MEDS ORDERED: IPRATROPIUM/ALBUTEROL 3 ML NEB INH PRN (12:09)
[2023-10-30] MEDS ORDERED: PROPOFOL 200 MG/20 ML VIAL IVP ONE ×2 (12:43→13:16)
--- NOTE | 2023-10-30 13:35 | OPERATIVE REPORT ---
Operative Report - General Admit Date: 10/28/23 Procedure Date: 10/30/23 Planned Procedure: colonoscopy Pre-Op Diagnosis: symptomatic gastrointestinal bleeding Procedure Performed: colonoscopy with endoscopic control of lower gastrointestinal bleeding (endoscopic clips; endoscopic cautery) Post Op Diagnosis: Lower gastrointestinal bleed; postpolypectomy hemorrhage - Procedure Note Primary Surgeon: Concha Méndez DO Anesthesia Provider: Desire Abarca Anesthesia Technique: MAC, Moderate sedation Pathology: None Estimated Blood Loss (mL): 10 Indications: 58yoF with LGIB 1 weeks s/p colonoscopy with polypectomy, requiring 3U PRBC for anemia (hgb 4) and tachycardia Findings: blood throughout colon. Wide base polypectomy scar identified in the cecum consistent with polypectomy via hot snare in recent colonoscopy, bleeding vessel visible within the base of the scar. Bleeding was not controlled with endoscopic cautery, endoscopic clips x3 were placed with apparent control of bleeding. Complications: none - Other Other Information/Narrative: The patient was brought to the operating room on the hospital bed, a time out was performed, and sedation was administered by the COMMUNITY REINVESTMENT ACT OFFICER. A digital rectal exam was performed, noting small external skin tags, normal rectal tone, and blood within the rectal vault. The colonoscope was inserted and advanced. With abdominal pressure and scope stiffening, the scope was able to be advanced to the cecum. Throughout the colon, there was blood visible. Within the cecum there was a large pool of blood, which was irrigated and suctioned, revealing a broad based white polypectomy scar. This was consistent with the reported large polypectomy via hot snare taken during recent colonoscopy. WIthin the base of the scar, there was a small pumping blood vessel, felt to be the source of the patients GI bleed - a post-polypectomy lower GI bleed. Control of hemorrhage was attempted with endoscopic cautery, however this was not successful . Endoscopic clips x3 were applied to the mucosa at the site of the vessel, with apparent cessation of bleeding. Two endoscopic clips deployed prematurely, leaving the clips loose within the lumen of the cecum; they were not retrieved. The endoscope was withdrawn, irrigating as much blood and removing as much air as possible during withdrawl. The patient was awoken from sedation. There were no complications. She was transported back to her room for recovery in good condition. Concha Méndez DO FACS
--- NOTE | 2023-10-30 13:49 | ANESTHESIA POST OP EVALUATION ---
Anesthesia Post Eval - Post Anesthesia Eval Vitals: Last Vital Signs Temp 36.4 C L 10/30/23 13:27 Pulse 90 10/30/23 13:27 Resp 16 10/30/23 12:09 BP 121/62 10/30/23 13:27 Pulse Ox 99 10/30/23 13:27 O2 Flow Rate CV Function Including HR & BP: Stable Pain Control: Satisfactory Nausea & Vomiting: Negative Mental Status: Baseline Respiratory Status: Airway Patent Hydration Status: Satisfactory Anesthesia Complications: None
[2023-10-30 15:14] LABS: HCT - HEMATOCRIT 22.4 % (37.0-47.0); HGB - HEMOGLOBIN 7.3 g/dL (12.0-16.0); MEAN CORPUSCULAR HEMOGLOBIN 30.5 pg (27.0-31.0); MEAN CORPUSCULAR HGB CONC 32.6 g/dL (32.0-36.0); MEAN CORPUSCULAR VOLUME 93.7 fL (81.0-99.0); MEAN PLATELET VOLUME 8.7 fL (7.9-10.8); RED BLOOD COUNT 2.39 10^6/uL (4.20-5.40); RED CELL DISTRIBUTION WIDTH 13.7 % (12.0-15.0); WHITE BLOOD COUNT 5.9 x10^3/uL (4.8-10.8)
[2023-10-30 15:30] LABS: CALCIUM 7.6 mg/dL (8.5-10.3); CREATININE 0.4 mg/dL (0.6-1.3); POTASSIUM 3.9 mmol/L (3.5-4.5)
[2023-10-30] MEDS: SODIUM CHLORIDE 0.9% 1,000 ML IV SCH (16:21)
--- NOTE | 2023-10-30 17:15 | ANESTHESIA POST OP EVALUATION ---
Anesthesia Post Eval - Post Anesthesia Eval Vitals: Last Vital Signs Temp 36.6 C 10/30/23 15:31 Pulse 93 10/30/23 15:31 Resp 21 10/30/23 15:31 BP 134/71 H 10/30/23 15:31 Pulse Ox 96 10/30/23 15:31 O2 Flow Rate CV Function Including HR & BP: Stable Pain Control: Satisfactory Nausea & Vomiting: Negative Mental Status: Baseline Respiratory Status: Airway Patent Hydration Status: Satisfactory Anesthesia Complications: None
[2023-10-30 21:15] LABS: MEAN CORPUSCULAR HGB CONC 33.8 g/dL (32.0-36.0); MEAN CORPUSCULAR VOLUME 91.7 fL (81.0-99.0); MEAN PLATELET VOLUME 8.8 fL (7.9-10.8); RED BLOOD COUNT 2.16 10^6/uL (4.20-5.40); RED CELL DISTRIBUTION WIDTH 13.7 % (12.0-15.0)
[2023-10-30 21:18] LABS: HGB - HEMOGLOBIN 6.7 g/dL (12.0-16.0)
[2023-10-30 21:20] LABS: HCT - HEMATOCRIT 19.8 % (37.0-47.0)
--- NOTE | 2023-10-30 22:04 | PROVIDER PROGRESS NOTE ---
Dental Technician Instructor Note - Dental Technician Instructor Note Dental Technician Instructor Note: Hgb 6.7 Discussed with RN - patient has not had any further signs of GI bleed since procedure today. 1 U PRBC ordered. Continue to trend H&H.
[2023-10-31 05:16] LABS: BASOPHILS # (AUTO) 0.1 10^3/uL (0.0-0.1); BASOPHILS % (AUTO) 1.7 %; EOSINOPHILS # (AUTO) 0.2 10^3/uL (0.0-0.7); EOSINOPHILS % (AUTO) 4.8 %; HCT - HEMATOCRIT 24.5 % (37.0-47.0); HGB - HEMOGLOBIN 8.2 g/dL (12.0-16.0); LYMPHOCYTES # (AUTO) 1.6 10^3/uL (1.5-3.5); LYMPHOCYTES % (AUTO) 33.9 %; MEAN CORPUSCULAR HEMOGLOBIN 30.9 pg (27.0-31.0); MEAN CORPUSCULAR HGB CONC 33.5 g/dL (32.0-36.0); MEAN CORPUSCULAR VOLUME 92.5 fL (81.0-99.0); MEAN PLATELET VOLUME 8.9 fL (7.9-10.8); MONOCYTES # (AUTO) 0.5 10^3/uL (0.0-1.0); MONOCYTES % (AUTO) 10.1 %; NEUTROPHILS # (AUTO) 2.4 10^3/uL (1.5-6.6); NEUTROPHILS % (AUTO) 49.1 %; PLT - PLATELET COUNT 134 10^3/uL (130-450); RED BLOOD COUNT 2.65 10^6/uL (4.20-5.40); RED CELL DISTRIBUTION WIDTH 13.9 % (12.0-15.0); WHITE BLOOD COUNT 4.8 x10^3/uL (4.8-10.8)
[2023-10-31 05:40] LABS: BUN - BLOOD UREA NITROGEN < 2 mg/dL (6-20); CALCIUM 7.9 mg/dL (8.5-10.3); CARBON DIOXIDE - CO2 26 mmol/L (21-32); CHLORIDE 105 mmol/L (101-111); CREATININE 0.3 mg/dL (0.6-1.3); GFR - MDRD 230 (>89); GLUCOSE 106 mg/dL (74-104); POTASSIUM 3.6 mmol/L (3.5-4.5); SODIUM 134 mmol/L (135-145)
[2023-10-31 09:47] LABS: BASOPHILS # (AUTO) 0.1 10^3/uL (0.0-0.1); BASOPHILS % (AUTO) 1.6 %; EOSINOPHILS # (AUTO) 0.2 10^3/uL (0.0-0.7); EOSINOPHILS % (AUTO) 4.9 %; HCT - HEMATOCRIT 26.8 % (37.0-47.0); LYMPHOCYTES # (AUTO) 1.4 10^3/uL (1.5-3.5); LYMPHOCYTES % (AUTO) 28.3 %; MEAN CORPUSCULAR HEMOGLOBIN 30.9 pg (27.0-31.0); MEAN CORPUSCULAR HGB CONC 33.6 g/dL (32.0-36.0); MEAN CORPUSCULAR VOLUME 92.1 fL (81.0-99.0); MEAN PLATELET VOLUME 8.9 fL (7.9-10.8); MONOCYTES # (AUTO) 0.4 10^3/uL (0.0-1.0); MONOCYTES % (AUTO) 8.1 %; NEUTROPHILS # (AUTO) 2.8 10^3/uL (1.5-6.6); NEUTROPHILS % (AUTO) 56.7 %; PLT - PLATELET COUNT 150 10^3/uL (130-450); RED BLOOD COUNT 2.91 10^6/uL (4.20-5.40); WHITE BLOOD COUNT 4.9 x10^3/uL (4.8-10.8)
[2023-10-31] MEDS: oxyCODONE 5 MG TABLET PO PRN (10:01)
--- NOTE | 2023-10-31 10:38 | PROVIDER PROGRESS NOTE ---
Subjective - General Admit Date: 10/30/23 Procedure Date: 10/30/23 Post Op Days: 1 Procedure Performed: Colonoscopy, endoscopic control of LGIB - Review of Systems All Other Systems: positive: Reviewed and negative - Other Other Information/Narrative: HD stable since colonoscopy (3 clips placed on bleeding vessel in polypectomy scar within cecum). Hgb did drop from 7.3 to 6.7 after colonoscopy, and thus 1U PRBC given overnight, hgb since transfusion 8 -> 9. Subjectively feels much improved - no nausea, no dizziness, no abdominal pain. Tolerating clears. 1 bloo dy BM since colonoscopy. Objective - Patient Data Reviewed Vital Signs: Yes Vital Signs: Vital Signs x48h Temp Pulse Resp BP Pulse Ox 10/31/23 07:29 36.6 C 93 16 133/85 H 96 10/31/23 03:48 36.6 C 98 18 141/78 H 96 Weight: Weight 10/29/23 10/30/23 10/31/23 23:59 23:59 23:59 Weight (kg) 64 kg Intake & Output: Intake and Output Totals x24h 10/29/23 10/30/23 10/31/23 23:59 23:59 23:59 Intake Total 5600.000 2848.333 1882 Output Total 1225 400 Balance 4375.000 2448.333 1882 - Lab Results Lab Results: 10/31/23 09:17 10/31/23 04:50 Other Lab Results: Lab Results x24hrs 10/31/23 10/31/23 10/31/23 Range/Units 09:17 09:17 04:50 WBC 4.9 (4.8-10.8) x10^3/uL RBC 2.91 L (4.20-5.40) 10^6/uL Hgb 9.0 L (12.0-16.0) g/dL Hct 26.8 L (37.0-47.0) % MCV 92.1 (81.0-99.0) fL MCH 30.9 (27.0-31.0) pg MCHC 33.6 (32.0-36.0) g/dL RDW 14.0 (12.0-15.0) % Plt Count 150 (130-450) 10^3/uL MPV 8.9 (7.9-10.8) fL Neut # (Auto) 2.8 (1.5-6.6) 10^3/uL Lymph # (Auto) 1.4 L (1.5-3.5) 10^3/uL [place] # (Auto) 0.4 (0.0-1.0) 10^3/uL Eos # (Auto) 0.2 (0.0-0.7) 10^3/uL Baso # (Auto) 0.1 (0.0-0.1) 10^3/uL Absolute Nucleated RBC 0.00 x10^3/uL Nucleated RBC % 0.0 /100WBC Sodium 134 L (135-145) mmol/L Potassium 3.6 (3.5-4.5) mmol/L Chloride 105 (101-111) mmol/L Carbon Dioxide 26 (21-32) mmol/L Anion Gap 3.0 L (6-13) BUN < 2 L (6-20) mg/dL Creatinine 0.3 L (0.6-1.3) mg/dL Estimated GFR (MDRD) 230 (>89) Glucose 106 H (74-104) mg/dL Calcium 7.9 L (8.5-10.3) mg/dL Cortisol AM Sample 8.3 ug/dL Blood Type Antibody Screen Crossmatch IS Only 10/31/23 10/30/23 10/30/23 Range/Units 04:50 21:09 15:07 WBC 4.8 6.0 (4.8-10.8) x10^3/uL RBC 2.65 L 2.16 L (4.20-5.40) 10^6/uL Hgb 8.2 L 6.7 L* (12.0-16.0) g/dL Hct 24.5 L 19.8 L* (37.0-47.0) % MCV 92.5 91.7 (81.0-99.0) fL MCH 30.9 31.0 (27.0-31.0) pg MCHC 33.5 33.8 (32.0-36.0) g/dL RDW 13.9 13.7 (12.0-15.0) % Plt Count 134 127 L (130-450) 10^3/uL MPV 8.9 8.8 (7.9-10.8) fL Neut # (Auto) 2.4 (1.5-6.6) 10^3/uL Lymph # (Auto) 1.6 (1.5-3.5) 10^3/uL [place] # (Auto) 0.5 (0.0-1.0) 10^3/uL Eos # (Auto) 0.2 (0.0-0.7) 10^3/uL Baso # (Auto) 0.1 (0.0-0.1) 10^3/uL Absolute Nucleated RBC 0.00 x10^3/uL Nucleated RBC % 0.0 /100WBC Sodium 130 L (135-145) mmol/L Potassium 3.9 (3.5-4.5) mmol/L Chloride 102 (101-111) mmol/L Carbon Dioxide 26 (21-32) mmol/L Anion Gap 2.0 L (6-13) BUN 3 L (6-20) mg/dL Creatinine 0.4 L (0.6-1.3) mg/dL Estimated GFR (MDRD) 165 (>89) Glucose 154 H (74-104) mg/dL Calcium 7.6 L (8.5-10.3) mg/dL Cortisol AM Sample ug/dL Blood Type Antibody Screen Crossmatch IS Only 10/30/23 10/28/23 Range/Units 15:07 20:23 WBC 5.9 (4.8-10.8) x10^3/uL RBC 2.39 L (4.20-5.40) 10^6/uL Hgb 7.3 L (12.0-16.0) g/dL Hct 22.4 L (37.0-47.0) % MCV 93.7 (81.0-99.0) fL MCH 30.5 (27.0-31.0) pg MCHC 32.6 (32.0-36.0) g/dL RDW 13.7 (12.0-15.0) % Plt Count 123 L (130-450) 10^3/uL MPV 8.7 (7.9-10.8) fL Neut # (Auto) (1.5-6.6) 10^3/uL Lymph # (Auto) (1.5-3.5) 10^3/uL [place] # (Auto) (0.0-1.0) 10^3/uL Eos # (Auto) (0.0-0.7) 10^3/uL Baso # (Auto) (0.0-0.1) 10^3/uL Absolute Nucleated RBC x10^3/uL Nucleated RBC % /100WBC Sodium (135-145) mmol/L Potassium (3.5-4.5) mmol/L Chloride (101-111) mmol/L Carbon Dioxide (21-32) mmol/L Anion Gap (6-13) BUN (6-20) mg/dL Creatinine (0.6-1.3) mg/dL Estimated GFR (MDRD) (>89) Glucose (74-104) mg/dL Calcium (8.5-10.3) mg/dL Cortisol AM Sample ug/dL Blood Type A POSITIVE Antibody Screen NEGATIVE Crossmatch IS Only See Detail - Current Medications Current Medications: Current Medications Generic Name Dose Route Start Last Admin Trade Name Freq PRN Reason Stop Dose Admin Acetaminophen 650 mg 10/28/23 20:36 10/29/23 16:03 Acetaminophen 325 Mg Tablet PO 650 mg Q4HR PRN Administration Pain 1 to 4, or Fever Sodium Chloride 1,000 mls @ 0 mls/hr 10/30/23 07:00 10/31/23 01:57 Normal Saline 0.9% IV 20 mls/hr .Q0M RUTHIE Administration TKO Ondansetron HCl 4 mg 10/28/23 20:39 10/29/23 21:56 Ondansetron 4 Mg/2 Ml Vial IVP 4 mg Q6HR PRN Administration Nausea / Vomiting Oxycodone HCl 10 mg 10/31/23 08:49 10/31/23 10:01 Oxycodone 5 Mg Tablet PO 10 mg Q6HR PRN Administration Pain 5 to 7 Patient Own Med ( 1 each 10/29/23 21:00 10/30/23 21:02 Bisoprolol Fumarate PO Not Given [Bisoprolol Fumarate HS RUTHIE ] 10 Mg Tablet) Patient Own Med ( 1 each 10/29/23 21:00 10/31/23 08:46 Fluticasone Nasal KERRIE Not Given [place]) BID RUTHIE Phenytoin Sodium 300 mg 10/28/23 22:00 10/30/23 21:01 Phenytoin Er 100 Mg Capsule PO 300 mg HS RUTHIE Administration Phenytoin Sodium 200 mg 10/29/23 09:00 10/31/23 08:48 Phenytoin Er 100 Mg Capsule PO 200 mg DAILY RUTHIE Administration Sodium Chloride 10 ml 10/29/23 01:00 10/31/23 08:46 Sodium Chloride Flush 0.9% 10 Ml Syringe IVP Not Given 0100,0900,1700 RUTHIE - Physical Exam General Appearance: positive: No acute distress, Alert Eyes Bilateral: positive: Normal inspection, PERRL ENT: positive: ENT inspection nml, Pharynx nml Respiratory: positive: Chest non-tender, No respiratory distress, Breath sounds nml Cardiovascular: positive: Regular rate & rhythm Abdomen: positive: Non-tender, No organomegaly, Nml bowel sounds, No distention Back: positive: Nml inspection Skin: positive: Color nml, No rash, Warm, Dry Extremities: positive: Non-tender, Full ROM, Nml appearance Neurologic/Psychiatric: positive: Oriented x3, Mood/affect nml ABX Reporting Has patient been on IV antibiotics over the past 48 hours?: No Impression/Plan - Problem List Problem List: 58yoF with LGIB 2/2 bleeding from recent polypectomy site within cecum, now PPD1 s/p colonoscopy with endoscopic clip placement. Thus far clinically stable and appropriate response to 1U PRBC overnight. Continue to observe another 24hrs to ensure stability representing cessation of LGIB. - OK for regular diet - ambulate with nursing - some blood in stool to be expected given residual blood in colon - trend H&H/HR: if stable, anticipate DC tomorrow - if evidence of rebleed, would attempt endoscopic control a second time before considering transfer for IR intervention. Concha Méndez DO FACS General Surgery
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
[2023-10-31 17:02] VITALS: O2SAT 97
[2023-10-31 18:46] LABS: BASOPHILS # (AUTO) 0.1 10^3/uL (0.0-0.1); BASOPHILS % (AUTO) 1.3 %; EOSINOPHILS # (AUTO) 0.3 10^3/uL (0.0-0.7); EOSINOPHILS % (AUTO) 4.5 %; HCT - HEMATOCRIT 25.3 % (37.0-47.0); HGB - HEMOGLOBIN 8.4 g/dL (12.0-16.0); LYMPHOCYTES # (AUTO) 2.1 10^3/uL (1.5-3.5); LYMPHOCYTES % (AUTO) 29.8 %; MEAN CORPUSCULAR HGB CONC 33.2 g/dL (32.0-36.0); MEAN CORPUSCULAR VOLUME 93.4 fL (81.0-99.0); MEAN PLATELET VOLUME 8.6 fL (7.9-10.8); MONOCYTES # (AUTO) 0.7 10^3/uL (0.0-1.0); MONOCYTES % (AUTO) 10.6 %; NEUTROPHILS # (AUTO) 3.7 10^3/uL (1.5-6.6); NEUTROPHILS % (AUTO) 53.5 %; PLT - PLATELET COUNT 147 10^3/uL (130-450); RED BLOOD COUNT 2.71 10^6/uL (4.20-5.40); RED CELL DISTRIBUTION WIDTH 14.1 % (12.0-15.0); WHITE BLOOD COUNT 6.9 x10^3/uL (4.8-10.8)
[2023-11-01 02:16] LABS: BASOPHILS # (AUTO) 0.1 10^3/uL (0.0-0.1); BASOPHILS % (AUTO) 1.5 %; EOSINOPHILS # (AUTO) 0.3 10^3/uL (0.0-0.7); EOSINOPHILS % (AUTO) 4.6 %; HCT - HEMATOCRIT 24.2 % (37.0-47.0); HGB - HEMOGLOBIN 7.9 g/dL (12.0-16.0); LYMPHOCYTES # (AUTO) 2.1 10^3/uL (1.5-3.5); LYMPHOCYTES % (AUTO) 36.4 %; MEAN CORPUSCULAR HGB CONC 32.6 g/dL (32.0-36.0); MEAN CORPUSCULAR VOLUME 94.9 fL (81.0-99.0); MEAN PLATELET VOLUME 8.4 fL (7.9-10.8); MONOCYTES # (AUTO) 0.6 10^3/uL (0.0-1.0); MONOCYTES % (AUTO) 9.6 %; NEUTROPHILS # (AUTO) 2.8 10^3/uL (1.5-6.6); NEUTROPHILS % (AUTO) 47.6 %; PLT - PLATELET COUNT 147 10^3/uL (130-450); RED BLOOD COUNT 2.55 10^6/uL (4.20-5.40); RED CELL DISTRIBUTION WIDTH 14.3 % (12.0-15.0); WHITE BLOOD COUNT 5.8 x10^3/uL (4.8-10.8)
[2023-11-01 04:58] LABS: BASOPHILS # (AUTO) 0.1 10^3/uL (0.0-0.1); BASOPHILS % (AUTO) 1.4 %; EOSINOPHILS # (AUTO) 0.2 10^3/uL (0.0-0.7); EOSINOPHILS % (AUTO) 3.7 %; HCT - HEMATOCRIT 23.9 % (37.0-47.0); LYMPHOCYTES # (AUTO) 1.7 10^3/uL (1.5-3.5); LYMPHOCYTES % (AUTO) 33.1 %; MEAN CORPUSCULAR HEMOGLOBIN 31.5 pg (27.0-31.0); MEAN CORPUSCULAR HGB CONC 33.5 g/dL (32.0-36.0); MEAN CORPUSCULAR VOLUME 94.1 fL (81.0-99.0); MEAN PLATELET VOLUME 8.7 fL (7.9-10.8); MONOCYTES # (AUTO) 0.5 10^3/uL (0.0-1.0); MONOCYTES % (AUTO) 10.1 %; NEUTROPHILS # (AUTO) 2.6 10^3/uL (1.5-6.6); NEUTROPHILS % (AUTO) 51.5 %; PLT - PLATELET COUNT 150 10^3/uL (130-450); RED BLOOD COUNT 2.54 10^6/uL (4.20-5.40); RED CELL DISTRIBUTION WIDTH 14.4 % (12.0-15.0); WHITE BLOOD COUNT 5.1 x10^3/uL (4.8-10.8)
--- NOTE | 2023-11-01 07:19 | Discharge Plan ---
Discharge Plan Problem Reviewed?: Yes Disposition: Home, Self Care Condition: Stable Prescriptions: Ferrous Gluconate [Fergon] 324 mg PO DAILY #60 tablet Diet: Regular Activity Restrictions: Activity as Tolerated Shower Restrictions: No Driving Restrictions: No Health Concerns: You recently had a colonoscopy and developed rectal bleeding after the procedure. Unfortunately bleeding from a colonoscopy is a rare but known side effect. You became dizzy, lightheaded and even had a seizure with the continued bleeding and had to come to the emergency room. In the emergency room, we identified you as having severe anemia. Anemia is when someone does not have enough red cells in her body. Normal amount of red cells we can measure with gr ams of hemoglobin. You were normal in June of this year 13.7 g of hemoglobin. But in coming to the emergency room you came down to 9.9. You continue to bleed during your stay. The lowest you got was 1.5 g of hemoglobin. You required a total of 4 units of packed red cells to transfuse you. With today's lab, you are 8 g of hemoglobin. General surgery consultation was provided to you. With a colonoscopy to investigate the source of the bleeding, they found you to have a small artery that was bleeding where you had your polyp removed. The artery was clipped. That seemed to stop the bleeding and your hemoglobin has been stable since then. We are cautiously optimistic that your bleeding has stopped completely. The area has had time to heal. Your blood pressure is stable, hemoglobin is stable and we feel you are stable to go home. Plan of Treatment: 1. Please see your primary care provider in follow-up in the next 1 to 2 weeks and have them check your CBC to make sure that your bone marrow is continuing to make more blood so that you are no longer anemic. 2. Your bone marrow is the place where red cells in your body are made. Because you are anemic again have to make extra. They need iron to do that and I have sent you home on 1 iron tablet a day for the next 2 months. It takes approximately 3 weeks for your 8 g of hemoglobin to go to 9 g of hemoglobin. Sometimes it will work faster. Assessment: Patient is alert, oriented to person, place, time and situation No Smoking: If you smoke, Please STOP! Call for help. Follow-up with: Trinity Rosario ARNP [Credentialed Staff Provider] -
--- NOTE | 2023-11-01 07:32 | DISCHARGE SUMMARY ---
"Discharge Summary Admit Date: 10/28/23 Discharge Date: 11/01/23 Discharging Provider: Carmelina Goel MD Primary Care Provider: SHAN Gorman Code Status: Attempt Resuscitation Condition at Discharge: Stable Discharge Disposition: 01 Home, Self Care - DIAGNOSES Discharge Diagnoses with Status of Each Condition: 1. Post polypectomy bleeding 2. Acute blood loss anemia 3. Hypotension and seizure due to #2 4. Seizure disorder 5. Hyponatremia 6. COPD 7. Chronic pain seeking opioids - HPI History of Present Illness: Mrs. Blankenship is a pleasant 58 yo F with a history of hypertension and seizures. She presented for evalaution of acute GI bleeding on the day of presentation. She denies a history of diarrhea, bloody stools or nsaid usage prior to onset. she did undergo a colonocsopy with polyp removal a week prior to her experiencing the bloody bowel movement. She stated she only had one episode. she became lightheaded and dizzy, she also had a seizure following the bloody bowel movement. In the ED her Hgb trend was 9 to 8 after 2 hours of observation. Case was discussed with general surgeon burton, who felt that patient was appropriate to monitor locally overnight, as her vitals were stable and she did not have any current signs of active bleeding. I performed this visit using real-time telehealth tools, including live-video. I obtained the patient's consent to perform this visit using the available telehealth modalities. - Past Medical History Cardiovascular: reports: Hypertension, Other Respiratory: reports: None Neuro: reports: TIA, Seizure disorder Endocrine/Autoimmune: reports: None GI: reports: GERD : reports: None HEENT: reports: Chronic vision loss, Other Psych: reports: Anxiety, Panic attacks, Claustrophobia Musculoskeletal: reports: Osteoarthritis, Chronic back pain Derm: reports: Psoriasis MRSA Hx?: No - Past Surgical History Ortho: reports: Other /[employer]ATING [employer]: reports: Dilation and currettage, LEEP (Cervical surgery) Cardiovascular: reports: Other Neuro: reports: Craniotomy HEENT: reports: Cataracts, Other - CONSULTS | PROCEDURES Consultations: General surgery Procedures: Colonoscopy with endoscopic control of lower GI bleeding done with endoscopic clips, endoscopic cautery of bleeding vessel within the base of the scar of previous polypectomy Plain film of the abdomen with out free air Transfusion of 4 units of packed cells - HOSPITAL COURSE Hospital Course: (1) Post-polypectomy bleeding Impression: This is attributed to the polypectomy she had just prior to admission. It was done with a hot snare and the adenoma was about 3 cm. General surgery was hoping not to have any intervention for her. Unfortunately, she continued to bleed after admission. She had received 4 units of blood. She underwent colonoscopy with clipping of bleeding artery done 10/29. 1 more unit of blood after that with a total of 5 units. Hemodynamics are stable and she feels better in spite of the 2 bloody BMs the morning of 10/30. She was kept one more day to make sure the clips held. Diet was advanced to regular diet. Hemoglobin stayed stable. BP stable and I felt she was ready for discharge. I am asking her to followup with her PCP Zora Morales in the next 1-2 weeks. Ask for a CBC to be done. I am also sending a prescription for ferrous gluconate 324 mg po daily for 60 days to her pharmacy. If she returns with further bleeding, the ER should consider transfer to a higher level of care where interventional radiology can embolize the bleeding vessel. (2) Acute blood loss anemia Impression: s/p 5 units of blood (3). Seizure disorder. She had several seizures with her bowel movements at home. Then in the ER. 1 emesis that was nonbloody. She had 1 episode of hypotension where she went from 130->95 but that responded to fluid bolus and transfusion of 1 packed cell. Her dilantin was resumed and no further seizures once she was in the hospital. (4). Patient has hyponatremia. In looking at the medical record that is chronic. Her sodium varies between 127 on the lowest, and 133 on the highest. September 2022>129, June 2023> 129, with this admission 128. She is on hyd rochlorothiazide. No history of alcoholic liver disease, congestive heart failure. Plan is to continue to monitor. Did check cortisol level for possible Oziel's. Cortisol is 8 this morning so Wyoming's will be diagnosed with a cortisol less than 3. her sodium has come up with IV fluids and blood transfusion. No further intervention. (5) COPD I assume this is her dx since she smokes. She declines the nicotine patch and wants the nasal spray but it's not on formulary. On Afrin or a substitute, and DuoNeb as needed (6) chronic pain And asking her where she does her pain at home due to this or trauma, she usually uses quite a bit of aspirin. Unfortunately she is not can to be able to do that because of the bleeding right now. She is on Tylenol and oxycodone 5 mg every 6 hours as needed. She feels exceedingly uncomfortable in the bed and her hip is really hurting she has increased her oxycodone to 10 mg every 6 hours as needed She is discharged in stable condition. Discharge exam had a temperature of 36.5, heart rate 70, blood pressure 127/63. Respirations 18. 97% on room air. She was complaining 4 out of 5 pain in her leg from her previous injury. Neck was supple. Lungs were clear. Regular rate and rhythm. She was no longer tachycardic, orthostatic, lightheaded or dizzy. Where she had been tearful and very fearful in the last day or so she was alert, cheerful, and ecstatic to be going home. Abdomen was soft, nontender. Normal bowel sounds. Extremities had no edema. Neurologically she is alert and oriented person, place, time and situation. Getting out of bed to take a shower. Needing no assist. Greater than 30 minutes spent coordinating discharge this document was made in part using voice recognition software. While efforts are made to proofread this document, sound alike and grammatical errors may occur. - ALLERGIES Allergies/Adverse Reactions: Allergies Allergy/AdvReac Type Severity Reaction Status Date / Time acetaminophen [From Tylenol] AdvReac Nausea Verified 10/28/23 17:11 ibuprofen AdvReac Nausea Verified 10/28/23 17:11 morphine AdvReac Nausea Verified 10/28/23 17:11 - MEDICATIONS Home Medications: Ambulatory Orders Medication Instructions Recorded Confirmed Phenytoin Sodium Extended 200 mg PO DAILY 11/09/14 10/29/23 [Dilantin] Loratadine 10 mg PO DAILY PRN 12/08/17 10/29/23 NIFEdipine [Adalat cc] 60 mg PO DAILY 12/08/17 10/29/23 bisoproloL fumarate [Bisoprolol 10 mg PO HS 12/08/17 10/29/23 Fumarate] Albuterol Sulfate [Proair Hfa 1 - 2 puffs INH Q4H PRN 10/25/20 10/29/23 Inhaler] Aspirin [Aspirin EC] 975 mg PO BID 10/25/20 10/29/23 Fluticasone [Flonase] 1 sprays KERRIE BID 10/25/20 10/29/23 Multivitamin,Therapeutic 1 each PO DAILY 10/29/23 10/29/23 [Thera-Tabs] Phenytoin [Dilantin] 300 mg PO HS 10/29/23 10/29/23 hydroCHLOROthiazide [Hydrodiuril] 12.5 mg PO DAILY 10/29/23 10/29/23 Ferrous Gluconate [Fergon] 324 mg PO DAILY #60 tablet 11/01/23 oxyCODONE [Roxicodone] 5 mg PO Q6H PRN #15 tablet 11/01/23 - LABS Result Diagrams: 11/01/23 04:39 10/31/23 04:50"
[2023-11-01 07:43] VITALS: BP 127/63
--- NOTE | 2023-11-01 09:54 | PROVIDER PROGRESS NOTE ---
Subjective - General Admit Date: 10/30/23 Procedure Date: 10/30/23 Post Op Days: 2 Procedure Performed: Colonoscopy, endoscopic control of LGIB - Review of Systems All Other Systems: positive: Reviewed and negative - Other Other Information/Narrative: No further bloody BM, no dizziness/feels well, HR into 70s, Hgb stable at 8 x24hrs. No acute events. Objective - Patient Data Reviewed Vital Signs: Yes Vital Signs: Vital Signs x48h Temp Pulse Resp BP Pulse Ox 11/01/23 07:38 36.5 C 70 18 127/63 97 Weight: Weight 10/30/23 10/31/23 11/01/23 23:59 23:59 23:59 Weight (kg) 64 kg Intake & Output: Intake and Output Totals x24h 10/30/23 10/31/23 11/01/23 23:59 23:59 23:59 Intake Total 2848.333 3363 820 Output Total 400 Balance 2448.333 3363 820 - Lab Results Lab Results: 11/01/23 04:39 10/31/23 04:50 Other Lab Results: Lab Results x24hrs 11/01/23 11/01/23 10/31/23 Range/Units 04:39 02:12 18:41 WBC 5.1 5.8 6.9 (4.8-10.8) x10^3/uL RBC 2.54 L 2.55 L 2.71 L (4.20-5.40) 10^6/uL Hgb 8.0 L 7.9 L 8.4 L (12.0-16.0) g/dL Hct 23.9 L 24.2 L 25.3 L (37.0-47.0) % MCV 94.1 94.9 93.4 (81.0-99.0) fL MCH 31.5 H 31.0 31.0 (27.0-31.0) pg MCHC 33.5 32.6 33.2 (32.0-36.0) g/dL RDW 14.4 14.3 14.1 (12.0-15.0) % Plt Count 150 147 147 (130-450) 10^3/uL MPV 8.7 8.4 8.6 (7.9-10.8) fL Neut # (Auto) 2.6 2.8 3.7 (1.5-6.6) 10^3/uL Lymph # (Auto) 1.7 2.1 2.1 (1.5-3.5) 10^3/uL [place] # (Auto) 0.5 0.6 0.7 (0.0-1.0) 10^3/uL Eos # (Auto) 0.2 0.3 0.3 (0.0-0.7) 10^3/uL Baso # (Auto) 0.1 0.1 0.1 (0.0-0.1) 10^3/uL Absolute Nucleated RBC 0.00 0.00 0.00 x10^3/uL Nucleated RBC % 0.0 0.0 0.0 /100WBC Cortisol AM Sample ug/dL 10/31/23 Range/Units 09:17 WBC (4.8-10.8) x10^3/uL RBC (4.20-5.40) 10^6/uL Hgb (12.0-16.0) g/dL Hct (37.0-47.0) % MCV (81.0-99.0) fL MCH (27.0-31.0) pg MCHC (32.0-36.0) g/dL RDW (12.0-15.0) % Plt Count (130-450) 10^3/uL MPV (7.9-10.8) fL Neut # (Auto) (1.5-6.6) 10^3/uL Lymph # (Auto) (1.5-3.5) 10^3/uL [place] # (Auto) (0.0-1.0) 10^3/uL Eos # (Auto) (0.0-0.7) 10^3/uL Baso # (Auto) (0.0-0.1) 10^3/uL Absolute Nucleated RBC x10^3/uL Nucleated RBC % /100WBC Cortisol AM Sample 8.3 ug/dL - Current Medications Current Medications: Current Medications Generic Name Dose Route Start Last Admin Trade Name Freq PRN Reason Stop Dose Admin Acetaminophen 650 mg 10/28/23 20:36 10/29/23 16:03 Acetaminophen 325 Mg Tablet PO 650 mg Q4HR PRN Administration Pain 1 to 4, or Fever Sodium Chloride 1,000 mls @ 0 mls/hr 10/30/23 07:00 10/31/23 16:30 Normal Saline 0.9% IV Infused .Q0M RUTHIE Infusion TKO Ondansetron HCl 4 mg 10/28/23 20:39 10/29/23 21:56 Ondansetron 4 Mg/2 Ml Vial IVP 4 mg Q6HR PRN Administration Nausea / Vomiting Oxycodone HCl 10 mg 10/31/23 08:49 11/01/23 09:17 Oxycodone 5 Mg Tablet PO 5 mg Q6HR PRN Administration Pain 5 to 7 Patient Own Med ( 1 each 10/29/23 21:00 10/31/23 20:18 Bisoprolol Fumarate PO 1 each [Bisoprolol Fumarate HS RUTHIE Administration ] 10 Mg Tablet) Patient Own Med ( 1 each 10/29/23 21:00 11/01/23 07:27 Fluticasone Nasal KERRIE Not Given [place]) BID RUTHIE Phenytoin Sodium 300 mg 10/28/23 22:00 10/31/23 20:17 Phenytoin Er 100 Mg Capsule PO 300 mg HS RUTHIE Administration Phenytoin Sodium 200 mg 10/29/23 09:00 11/01/23 09:15 Phenytoin Er 100 Mg Capsule PO 200 mg DAILY RUTHIE Administration Sodium Chloride 10 ml 10/29/23 01:00 11/01/23 09:16 Sodium Chloride Flush 0.9% 10 Ml Syringe IVP Not Given 0100,0900,1700 [facility] - Physical Exam Wound/Incisions: positive: Healing well, Dressing dry and intact, No drainage General Appearance: positive: No acute distress, Alert Eyes Bilateral: positive: Normal inspection, PERRL ENT: positive: ENT inspection nml, Pharynx nml Neck: positive: Nml inspection, No JVD Respiratory: positive: Chest non-tender, No respiratory distress, Breath sounds nml Cardiovascular: positive: Regular rate & rhythm Abdomen: positive: Non-tender, No organomegaly, Nml bowel sounds, No distention Back: positive: Nml inspection Skin: positive: Color nml, No rash, Warm, Dry Extremities: positive: Non-tender, Full ROM, Nml appearance Neurologic/Psychiatric: positive: Oriented x3, Mood/affect nml ABX Reporting Has patient been on IV antibiotics over the past 48 hours?: No Impression/Plan - Problem List Problem List: 58yoF admitted for LGIB from recent cecal polypectomy site, now PPD2 s/p endoscopic control of bleeding with clips on 10/29, and clinically stable - HR normalized and hgb stablized, received total of 4U PRBC during admission. Pathology from x4 polyps at index colonoscopy reviewed - all tubular adenomas. Follow up with surgery clinic re: index colonoscopy as initially planned. Stable for discharge home today. Concha Méndez DO FACS General Surgeon
== END 2023-11-01 09:56 | disposition home or self-care (01) | DRG 920 ==
LOC: EDUNIT# → ED 17:06 → MS2 20:36 → OBSVTOIN 10-30 15:30
PROVIDERS: ADMIT Hospitalist; ATTEND Specialist
PROC: 30233N1 Transfusion of Nonautologous Red Blood Cells into Peripheral Vein, Percutaneous Approach (ICD-10-PCS; 2023-10-30)
PROC: 0W3P8ZZ Control Bleeding in Gastrointestinal Tract, Via Natural or Artificial Opening Endoscopic (ICD-10-PCS; principal; 2023-10-30 12:00)
DX: K91.840 Postprocedural hemorrhage of a digestive system organ or structure following a digestive system procedure (principal); D62 Acute posthemorrhagic anemia; E87.1 Hypo-osmolality and hyponatremia; Y83.8 Other surgical procedures as the cause of abnormal reaction of the patient, or of later complication, without mention of misadventure at the time of the procedure; I95.9 Hypotension, unspecified; G40.909 Epilepsy, unspecified, not intractable, without status epilepticus; J44.9 Chronic obstructive pulmonary disease, unspecified; G89.29 Other chronic pain; I10 Essential (primary) hypertension; K21.9 Gastro-esophageal reflux disease without esophagitis; F17.200 Nicotine dependence, unspecified, uncomplicated; R09.81 Nasal congestion; Z79.82 Long term (current) use of aspirin; Z79.899 Other long term (current) drug therapy; Z86.010 Personal history of colon polyps; Z86.73 Personal history of transient ischemic attack (TIA), and cerebral infarction without residual deficits
CPT/HCPCS: 36415; 74018; 80048; 80053; 80185; 81001; 82533; 83690; 85014; 85018; 85025; 85027; 86850; 86900; 86901; 86920; A9270; J2060; P9016; 36430; 81003; 87086; 96374; 96375; 96376; 99284; G0378

== ENCOUNTER 2023-11-12 07:20 | Outpatient (CLI) | payer MEDICAID ==
[2023-11-12 07:28] LABS: BASOPHILS # (AUTO) 0.1 10^3/uL (0.0-0.1); BASOPHILS % (AUTO) 1.6 %; EOSINOPHILS # (AUTO) 0.2 10^3/uL (0.0-0.7); EOSINOPHILS % (AUTO) 4.1 %; HCT - HEMATOCRIT 34.8 % (37.0-47.0); HGB - HEMOGLOBIN 11.1 g/dL (12.0-16.0); LYMPHOCYTES # (AUTO) 2.1 10^3/uL (1.5-3.5); LYMPHOCYTES % (AUTO) 38.6 %; MEAN CORPUSCULAR HEMOGLOBIN 30.6 pg (27.0-31.0); MEAN CORPUSCULAR HGB CONC 31.9 g/dL (32.0-36.0); MEAN CORPUSCULAR VOLUME 95.9 fL (81.0-99.0); MEAN PLATELET VOLUME 8.2 fL (7.9-10.8); MONOCYTES # (AUTO) 0.7 10^3/uL (0.0-1.0); MONOCYTES % (AUTO) 12.3 %; NEUTROPHILS # (AUTO) 2.4 10^3/uL (1.5-6.6); NEUTROPHILS % (AUTO) 42.9 %; PLT - PLATELET COUNT 484 10^3/uL (130-450); RED BLOOD COUNT 3.63 10^6/uL (4.20-5.40); RED CELL DISTRIBUTION WIDTH 14.4 % (12.0-15.0); WHITE BLOOD COUNT 5.6 x10^3/uL (4.8-10.8)
== END 2023-11-12 07:21 | disposition home or self-care (01) ==
LOC: LAB 07:20
PROVIDERS: ATTEND Registered Nurse
DX: D62 Acute posthemorrhagic anemia (principal)
CPT/HCPCS: 36415; 85025

== ENCOUNTER 2023-12-10 09:32 | Outpatient (CLI) | payer MEDICAID ==
--- NOTE | 2023-12-10 15:55 | MRI Report ---
PROCEDURE: Lumbar Spine WO INDICATIONS: THORACIC BACK PAIN, LUMBAR BACK PAIN TECHNIQUE: Noncontrast sagittal T1 spin echo and T2 fast echo, sagittal STIR, axial T1 and T2 fast spin echo thr ough the lumbar spine. In cases with scoliosis, additional coronal T2 fast spin echo may be performe d. COMPARISON: 12/24/2014. FINDINGS: Image quality: Excellent. Alignment and Curvature: Mild levocurvature of the lower lumbar spine. Grade 1 anterolisthesis of L3 on L4 and L4 on L5.. Bone Marrow: Multilevel degenerative endplate changes, most pronounced at L5-S1. Marrow is of normal overall signal. No acute vertebral body compression fractures. Spinal Cord: Conus medullaris terminates at the L1 level. Visualized cord demonstrates normal signa l and size. Paraspinous Soft Tissues: No paravertebral masses. T12-L1: Normal in appearance. L1-L2: Normal in appearance. L2-L3: Disc desiccation and mild diffuse disc bulge. Facet arthropathy and thickening of the ligam entum flavum. No significant central canal stenosis. Minimal foraminal narrowing. Stable compared to prior. L3-L4: Disc desiccation and mild diffuse disc bulge. Facet arthropathy and thickening of ligamentum flavum. Epidural lipomatosis. Stable mild central canal stenosis. Mild narrowing of the right latera l recess without abutment of the descending right L4 nerve root. Mild bilateral neuroforaminal stenos is. L4-L5: Disc desiccation and mild height loss. Diffuse disc bulge with superimposed right paracentra l disc protrusion. Facet arthropathy and thickening of ligamenta flava. Epidural lipomatosis. Moderat e central canal stenosis is progressed. Narrowing of the right greater than left lateral recesses wit h possible impingement of descending right L5 nerve root. Mild to moderate bilateral foraminal stenos is stable. L5-S1: Disc desiccation without height loss. Diffuse disc bulge. Facet arthropathy and thickening o f the ligamentum flavum. No significant central canal stenosis. There is lateral recess stenosis with abutment of the descending S1 nerve roots. Severe right and moderate left neuroforaminal stenosis. IMPRESSION: 1.Multilevel degenerative changes of the lumbar spine as described above. 2.Progression of moderate central canal stenosis at L4-L5. New right paracentral disc degeneration at this level there is right lateral recess with possible impingement of the descending right L5 nerve root. 3.Stable multilevel neural foraminal stenosis as above, severe involving the right L5-S1 neural natali nohelia. Reviewed by: Kenny Verdin MD on 12/10/2023 3:54 PM PDT Approved by: Kenny Verdin MD on 12/10/2023 3:54 PM PDT Station ID: [id number]
--- NOTE | 2023-12-10 15:58 | MRI Report ---
PROCEDURE: Thoracic Spine WO INDICATIONS: THORACIC BACK PAIN, LUMBAR BACK PAIN TECHNIQUE: Noncontrast sagittal T1 spine echo and T2 fast spin echo, sagittal STIR, axial T1 and T2 fast spin ec ho through the thoracic spine. COMPARISON: None. FINDINGS: Image quality: Excellent. Alignment and Curvature: There is normal bony alignment. Bone Marrow: Marrow is of normal overall signal. No acute vertebral body compression fractures. Spinal Cord: Visualized spinal cord is normal in size and signal. Paraspinous Soft Tissues: No paravertebral masses. Miscellaneous: Multilevel disc desiccation and height loss. Disc protrusions involving the mid and l ower thoracic spine without significant central canal stenosis. And no neuroforaminal stenosis.. IMPRESSION: Degenerative changes of the thoracic spine without significant central canal or neuroforaminal stenos is. Reviewed by: Kenny Verdin MD on 12/10/2023 3:57 PM PDT Approved by: Kenny Verdin MD on 12/10/2023 3:57 PM PDT Station ID: [id number]
== END 2023-12-10 09:33 | disposition home or self-care (01) ==
LOC: DI 09:32
PROVIDERS: ATTEND Registered Nurse
DX: M51.34 Other intervertebral disc degeneration, thoracic region (principal); M51.24 Other intervertebral disc displacement, thoracic region; M47.816 Spondylosis without myelopathy or radiculopathy, lumbar region; M51.26 Other intervertebral disc displacement, lumbar region; M48.061 Spinal stenosis, lumbar region without neurogenic claudication; M51.16 Intervertebral disc disorders with radiculopathy, lumbar region; M51.17 Intervertebral disc disorders with radiculopathy, lumbosacral region; M48.07 Spinal stenosis, lumbosacral region; M47.817 Spondylosis without myelopathy or radiculopathy, lumbosacral region